=== PATIENT | male | born 2005 | race Caucasian/White ===

== ENCOUNTER 2024-08-22 11:27 | Outpatient (CLI) | payer BC, SELFPAY ==
[2024-08-22 13:28] LABS: Hemoglobin 15.1 g/dL (14.0-18.0); Mean Corpuscular HGB Conc 32.8 g/dl (32-36); Mean Corpuscular Hemoglobin 29.9 pg (26-34); Mean Corpuscular Volume 91.1 fl (80-100); Mean Platelet Volume 10.4 fl (7.4-10.4); Platelet Count Result 193 k/mm3 (150-375); Red Blood Count 5.05 M/mm3 (4.6-6.20); Red Cell Distribution Width 13.3 % (11.5-14.5); White Blood Count 3.8 K/mm3 (4.5-10.0)
[2024-08-22 13:28] LABS: Ammonia < 9 umol/L (9-30)
[2024-08-22 13:38] LABS: Alanine Aminotransferase 27 U/L (6-50); Albumin Level 4.9 g/dL (3.7-5.6); Alkaline Phosphatase 124 U/L (58-237); Anion Gap 13 mmol/L (4-12); Aspartate Amino Transferase 49 U/L (17-59); Bilirubin,Total 0.4 mg/dL (0.2-1.3); Blood Urea Nitrogen 8 mg/dL (8-21); Calcium 9.5 mg/dL (8.9-10.7); Carbon Dioxide 27 mmol/L (22-30); Chloride 94 mmol/L (98-107); Estimated Glomerular Filt Rate > 60; Glucose 62 mg/dL (65-110); Potassium 4.7 mmol/L (3.4-5.0); Sodium 134 mmol/L (134-143)
[2024-08-22 14:05] LABS: Valproic Acid 80.9 ug/mL (50-120)
[2024-08-24 21:48] LABS: Oxcarbazepine 19.5 mcg/mL (8.0-35.0)
== END 2024-08-22 11:28 | disposition home or self-care (01) ==
LOC: ANHGOSHLAB 11:34
DX: G40.019 Localization-related (focal) (partial) idiopathic epilepsy and epileptic syndromes with seizures of localized onset, intractable, without status epilepticus (principal); Z79.899 Other long term (current) drug therapy
CPT/HCPCS: 36415; 80053; 80164; 80183; 82140; 85027

== ENCOUNTER 2025-02-06 12:30 | Outpatient (CLI) | payer BC, SELFPAY ==
[2025-02-06 13:54] LABS: Ammonia 21 umol/L (9-30)
--- OUTSIDE RECORDS SUMMARY | 2025-02-06 14:52 | XMS_ITS | Clinical Summary ---
Author Organization [facility] Address [address] [place] [address] Care Team Providers Care Hook Up Driver Name Role Phone Avis Clark MD Unavailable [phone] Source Comments [facility],non-owned Affiliates and Associated Physician Practices is amultiple site organization consisting of ambulatory clinics and hospital sitesin [place], [place], [place] and [place]. This disclosure is being madepursuant to the Care Everywhere program and may not contain all information available regarding this patient. Last updated 18.[employer] [facility] Allergies Active Allergy Reactions Criticality Noted Date Comments Penicillins Unknown 10/02/2021 Family has reactions mom avoids Medications * Be aware that medications may not be up to date on this document. Alwaysverify current medications with the patient. Medication Sig Dispensed Refills Start Date End Date Status polyethylene glycol 3350 (MIRALAX) packet Take by mouth once daily Active diazePAM (VALTOCO) 10 MG/0.1ML nasal spray [place] 0.1 mL into the nose as needed (seizure > 5 min) 2 Each 07/31/2021 Active multivitamin daily tablet Take 1 (one) tablet by mouth daily with food Active melatonin 3 MG tablet Take 1 (one) tablet by mouth at bedtime Active acetaminophen (TYLENOL) 325 MG tablet Take 1 (one) tablet by mouth every 4 hours as needed for Fever or Pain Maximum allowable Acetaminophen amount = 4 Grams (4000 mg) / 24 hours. Active OXcarbazepine (Trileptal) 300 MG/5ML suspensionIndica tions:Localizati on-related focal epilepsy with simple partial seizures (HCC) Take 15 mL by mouth 2 times daily 900 mL 5 08/22/2024 02/18/2025 Active valproic acid (Depakene) 250 MG/5ML solutionIndicati ons:Localization -related focal epilepsy with simple partial seizures (HCC) Take 10 mL by mouth every 12 hours 600 mL 5 08/22/2024 02/18/2025 Active diazePAM (Valtoco) 15 MG (2 x 7.5 MG/0.1ML) nasal sprayIndications :Localization-re lated focal epilepsy with simple partial seizures (HCC) [place] 0.2 mL into the nose as needed for Seizures (for seizure lasting 5 minutes OR cluster of seizures 3 or more in 1 hour) Use first device to spray 0.1 mL into one nostril and the second device to spray 0.1 mL in the other nostril. 2 Each 1 01/23/2025 Active diazePAM (Valtoco) 15 MG (2 x 7.5 MG/0.1ML) nasal sprayIndications :Localization-re lated focal epilepsy with simple partial seizures (HCC) [place] 0.2 mL into the nose as needed for Seizures (for seizure lasting 5 minutes OR cluster of seizures 3 or more in 1 hour) Use first device to spray 0.1 mL into one nostril and the second device to spray 0.1 mL in the other nostril. 1 Each 1 03/21/2024 01/23/2025 Discontinue d(Tx Complete) Active Problems Patient Care Coordination No te Formatting of this note migh t be different from the original. Do you have any cultural preferences or concerns? 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 Seizures improved not eliminated on Trileptal. He has not seen to have complications from medication and good reported compliance. Plan - Increase Trileptal 720 mg BID, 12 mL (29 mg/kg) - Valtoco rescued ordered - MRI brain ordered, with need for sedation family prefers to do closer to home - Social work consult for home school resources - Follow up in 3 months Assessment & Plan (01/16/2020 10:05 PM MINERAL ECONOMIST): Assessment: 14 year old male with history of possible autism presenting with episodes of lip smacking and fidgety motions of hands, now associated with behavioral arrest. Differential includes seizure (more likely focal onset with impared awareness rather than absence given age of patient and presentation) vs physiologic behavioral change. Plan: - Admit to Pediatric Neurology (Dr. Molina) - Vital checks Q8 - Neuro Checks Q4 - Seizure precautions - Diet regular - EEG in AM - Ativan 0.1 mg/kg for seizures > 5 minutes or clusters of seizures without return to baseline Encounters Date Type Department Care Team Description 02/06/2025 10:30 AM CDT Hospital Encounter [facility] Pediatrics - Neurology [address] [place] [address] Gayla Diaz MD 02/06/2025 Travel 01/23/2025 Travel 01/23/2025 Refill [facility] Pediatrics - Neurology [address] [place] [id number] Gayla Diaz MD MEDICATION REFILL from Last 3 Months Immunizations Name Administration Dates Next Due DTAP/HEP B/IPV 02/12/2005,2004 DTAP/IPV 06/25/2010 DTaP VACCINE IM (6wk-6yrs) 01/29/2006,05/09/2005 FLU VACCINE TRI IIV3 SPLIT I M (FLUVIRIN) 08/31/2012 HEP A PED/ADULT VACCINE 05/07/2007,07/22/2006 HEP A PEDS 2 DOSE 05/07/2007,07/22/2006 HEP B VACCINE, PED/ADOL 05/09/2005,2004, HIB VACCINE 01/29/2006, 5,02/12/2005,12/16 Human Papilloma Virus Nineva lent Vaccine 06/22/2018,07/24/2017 INFLUENZA VACCINE 10/16/2008, 7,11/06/2006,10/21 INFLUENZA VACCINE, QUADR. (F LUZONE; FLULAVAL; FLUARIX; AFLURIA QUADRIVALENT; 6MO+), 0.5 ML (IIV4) 01/17/2020,11/11/2017,11/04/2017,08/31,10/04/2014 MENINGOCOCCAL MCV4 07/02/2015 MMR VACCINE 10/16/2008,10/21/2005 PNEUMOCOCCAL PCV7 CONJ, PEDS 01/29/2006, 05/09/2005,02/12/2005,12/16 POLIO IPV 05/09/2005 TDAP, HISTORIC VACCINE 07/02/2015 VARICELLA 10/16/2008,10/21/2005 Social History Tobacco Use Types Packs/Day Years Used Date Smoking Tobacco: Never Passive Smoke Exposure: Yes Smokeless Tobacco: Never Tobacco Cessation:Counseling Given: Not Answered Alcohol Use Standard Drinks/Week Comments Never 0 (1 standard drink = 0.6 oz pur e alcohol) AUDIT-C Answer Date Recorded Frequency of Alcohol Consumption Never 01/16/2020 Average Number of Drinks Not on file 020 Frequency of Binge Drinking Not on file 12/25 Sex and Gender Information Value Date Recorded Sex Assigned at Not on file Gender Identity Not on file Sexual Orientation Not on file Last Filed Vital Signs Vital Sign Reading Time Taken Comments Blood Pressure 124/72 02/06/2025 10:38 AM CDT Pulse 96 10/02/2021 3:40 PM MINERAL ECONOMIST Temperature 36.6 C (97.8 F) 10/02/2021 3:40 PM MINERAL ECONOMIST Respiratory Rate 15 10/02/2021 3:40 PM MINERAL ECONOMIST Oxygen Saturation 97% 10/02/2021 3:40 PM MINERAL ECONOMIST Inhaled Oxygen Concentration - - Weight 53.7 kg (118 lb 6.2 oz) 02/06/2025 10:38 AM CDT Height 170.3 cm (5' 7.05 ) 02/06/2025 10:38 AM C DT Body Mass Index 18.52 02/06/2025 10:38 AM CDT Plan of Treatment Upcoming Encounters Date Type Department Care Team (Late st Contact Info) Description 04/24/2025 11:30 AM CDT Appointment [facility] Pediatrics - Neurology [facility] [facility] [place] [id number] Gayla Diaz MD [address] [place] [address] Health Maintenance Due Date Last Done Comments HIV SCREENING 2019 MENINGOCOCCAL (Group B) VACCINE SHARED DECISION-MAKING (1 of 2 - Standard) 2020 HEPATITIS C SCREENING 10/10/2022 COVID-19 VACCINE ( - season) 2024 DEPRESSION SCREENING 11/23/2024 DTAP/TDAP/TD VACCINES (7 - Td or Tdap) 07/02/2025 07/02/2015, 06/25/2010, 01/29/2006, Additional history exists ZOSTER VACCINE (1 of 2) 2054 HEPATITIS B VACCINE Completed 05/09/2005, 02/12/2005, 2004, Additional history exists HIB VACCINE Completed 01/29/2006, 04/23, 02/12/2005, Additional history exists PNEUMOCOCCAL VACCINE Completed 01/29/2006, 05/09/2005, 02/12/2005, Additional history exists MENINGOCOCCAL GROUPS A/C/Y/W VACCINE Aged Out 07/02/2015 No longer eligible based on patient's age to complete this topic HPV VACCINE Completed 06/22/2018, 07/24/2017 INFLUENZA VACCINE Completed 01/22/2025, , 01/17/2020, Additional history exists Advance Directives * Full Code (Latest Code Status on File) Date Activated Date Inactivated Comments 01/16/2020 9:36 PM 01/17/2020 6:52 PM Care Teams Hook Up Driver Relationship Specialty Start Date End Date Avis Clark MD PCP - Attributed-[employer] Medicaid [place] 08/23/22
--- OUTSIDE RECORDS SUMMARY | 2025-02-06 14:52 | XMS_ITS | Patient Health Summary ---
Author Organization [facility] Address [address] [place] [address] Care Team Providers Care Manager Primary Name Role Phone Avis Clark MD Unavailable [phone] Note from [facility],non-owned Affiliates and Associated Physician Practices is amultiple site organization consisting of ambulatory clinics and hospital sitesin [place], [place], [place] and [place]. This disclosure is being madepursuant to the Care Everywhere program and may not contain all information available regarding this patient. Last updated 18.[facility] Allergies * Penicillins(Unknown) Medications * Be aware that medications may not be up to date on this document. Alwaysverify current medications with the patient. * polyethylene glycol 3350 (MIRALAX) packet Take by mouth once daily * diazePAM (VALTOCO) 10 MG/0.1ML nasal spray(Started 07/31/2021) [place] 0.1 mL into the nose as needed (seizure > 5 min) * multivitamin daily tablet Take 1 (one) tablet by mouth daily with food * melatonin 3 MG tablet Take 1 (one) tablet by mouth at bedtime * acetaminophen (TYLENOL) 325 MG tablet Take 1 (one) tablet by mouth every 4 hours as needed for Fever or Pain Maximum allowable Acetaminophen amount = 4 Grams (4000 mg) / 24 hours. * OXcarbazepine (Trileptal) 300 MG/5ML suspension(Started 08/22/2024) Take 15 mL by mouth 2 times daily 5 refills by 08/22/2025 * valproic acid (Depakene) 250 MG/5ML solution(Started 08/22/2024) Take 10 mL by mouth every 12 hours 5 refills by 08/22/2025 * diazePAM (Valtoco) 15 MG (2 x 7.5 MG/0.1ML) nasal spray(Started 01/23/2025) [place] 0.2 mL into the nose as needed for Seizures (for seizure lasting 5 minutes OR cluster of seizures 3 or more in 1 hour) Use first device to spray 0.1 mL into one nostril and the second device tospray 0.1 mL in the other nostril. 1 refill by 07/22/2025 Ended Medications* diazePAM (Valtoco) 15 MG (2 x 7.5 MG/0.1ML) nasal spray (Started 03/21/2024)(Discontinued) [place] 0.2 mL into the nose as needed for Seizures (for seizure lasting 5 minutes OR cluster of seizures 3 or more in 1 hour) Use first device to spray 0.1 mL into one nostril and the second device tospray 0.1 mL in the other nostril. 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, intractable, without status epilepticus 01/16/2020 Immunizations * DTAP/HEP B/IPV(Given 02/12/2005, 2004) * DTAP/IPV(Given 06/25/2010) * DTaP VACCINE IM (6wk-6yrs)(Given 01/29/2006, 05/09/2005) * FLU VACCINE TRI IIV3 SPLIT IM (FLUVIRIN)(Given 08/31/2012) * HEP A PED/ADULT VACCINE(Given 05/07/2007, 07/22/2006) * HEP A PEDS 2 DOSE(Given 05/07/2007, 07/22/2006) * HEP B VACCINE, PED/ADOL(Given 05/09/2005, 2004, 2004) * HIB VACCINE(Given 01/29/2006, 05/09/2005, 02/12/2005, 2004) * Human Papilloma Virus Ninevalent Vaccine(Given 06/22/2018, 07/24/2017) * INFLUENZA VACCINE(Given 10/16/2008, 10/18/2007, 11/06/2006, 10/21/2005) * INFLUENZA VACCINE, QUADR. (FLUZONE; FLULAVAL; FLUARIX; AFLURIA QUADRIVALENT; 6MO+), 0.5 ML (IIV4)(Given 01/17/2020, 11/11/2017, 11/04/2017, 08/31/2015, 10/04/2014) * MENINGOCOCCAL MCV4(Given 07/02/2015) * MMR VACCINE(Given 10/16/2008, 10/21/2005) * PNEUMOCOCCAL PCV7 CONJ, PEDS(Given 01/29/2006, 05/09/2005, 02/12/2005, 2004) * POLIO IPV(Given 05/09/2005) * TDAP, HISTORIC VACCINE(Given 07/02/2015) * VARICELLA(Given 10/16/2008, 10/21/2005) Social History Tobacco Use Types Packs/Day Years [...] AM CDT Pulse 96 10/02/2021 3:40 PM CLEANERS Temperature 36.6 C (97.8 F) 10/02/2021 3:40 PM CLEANERS Respiratory Rate 15 10/02/2021 3:40 PM CLEANERS Oxygen Saturation 97% 10/02/2021 3:40 PM CLEANERS Inhaled Oxygen Concentration - - Weight 53.7 kg (118 lb 6.2 oz) 02/06/2025 10:38 AM CDT Height 170.3 cm (5' 7.05 ) 02/06/2025 10:38 AM C DT Body Mass Index 18.52 02/06/2025 10:38 AM CDT Procedures * MRI BRAIN WO CONTRAST(Performed 10/02/2021) Performed for Seizure (HCC) * EEG AWAKE AND ASLEEP(Performed 01/17/2020) Results * MRI BRAIN WO CONTRAST (10/02/2021 2:05 PM CLEANERS) Anatomical Region Laterality Modality Head Magnetic Resonan ce 10/02/2021 1:35 PM CLEANERS Impressions 10/02/2021 3:02 PM CLEANERS Multiple punctate foci of T2/FLAIR hyperintensity within the bifrontal subcortical and bilateral periatrial white matter. These are nonspecific, possibly representing gliosis or related to perivascular spaces. Otherwise normal MRI of the brain. Reading Radiologist: Maritza Flores on 10/02/2021 at 3:02 PM Narrative 10/02/2021 3:02 PM CLEANERS INDICATION: Seizure COMPARISON: None available. TECHNIQUE: Multiplanar, multisequence MR images of the brain without IV contrast per departmental protocol. FINDINGS: There is no intracranial mass, mass effect or hemorrhage. The ventricles are normal in size and configuration. Persistent cavum septum pellucidum. There is no abnormal extra-axial fluid. The mondragon-white matter differentiation is normal. The myelination pattern is normal. There are multiple punctate foci of T2/FLAIR hyperintensity within the bifrontal subcortical and periatrial white matter, the largest is in the right frontal region measuring 3 mm. No associated reduced diffusion or susceptibility related signal loss. The corpus callosum is fully formed and normal in appearance. The pituitary gland is convex superiorly, normal for age. There is a normal posterior pituitary bright spot. The pineal gland is normal. The posterior fossa is normal, including no Chiari malformation. There are normal high velocity flow voids within the vascular structures of the [place]. No reduced diffusion. The hippocampi are symmetric, normal in size and signal. There is no mondragon matter heterotopia or other migration anomaly. No evidence of vascular malformation. The orbits are normal. There is mild mucosal thickening/fluid signal in the paranasal sinuses. No mastoid effusion. Procedure Note Maritza Flores MD - 10/02/2021 INDICATION: Seizure COMPARISON: None available. TECHNIQUE: Multiplanar, multisequence MR images of the brain without IVcontrast per departmental protocol. FINDINGS: There is no intracranial mass, mass effect or hemorrhage. The ventricles are normal in size and configuration. Persistent cavumseptum pellucidum. There is no abnormal extra-axial fluid. The mondragon-white matter differentiation is normal. The myelination patternis normal. There are multiple punctate foci of T2/FLAIR hyperintensity withinthe bifrontal subcortical and periatrial white matter, the largest is in theright frontal region measuring 3 mm. No associated reduced diffusion orsusceptibility related signal loss. The corpus callosum is fully formed and normal in appearance. Thepituitary gland is convex superiorly, normal for age. There is a normal posterior pituitary bright spot. The pineal gland is normal. The posterior fossa is normal, including noChiari malformation. There are normal high velocity flow voids within the vascular structuresof the [place] of [place]. No reduced diffusion. The hippocampi are symmetric, normal in size and signal. There is no graymatter heterotopia or other migration anomaly. No evidence of vascularmalformation. The orbits are normal. There is mild mucosal thickening/fluid signal inthe paranasal sinuses. No mastoid effusion. IMPRESSION Multiple punctate foci of T2/FLAIR hyperintensity within the bifrontal subcortical and bilateral periatrial white matter. These are nonspecific, possibly representing gliosis or related to perivascular spaces. Otherwise normal MRI of the brain. Reading Radiologist: Maritza Flores on 10/02/2021 at 3:02 PM Zachary Kaba MD MR ORDERABLES Care Teams Manager Primary Relationship Specialty Start Date End Date Avis Clark MD PCP - Attributed-[employer] Medicaid [place] 08/23/22
--- OUTSIDE RECORDS SUMMARY | 2025-02-06 14:52 | XMS_ITS | Referral Summary ---
Author Organization [facility] Address [address] [place] [address] Care Team Providers Care Layer Up Name Role Phone Unknown, Notinfile Primary Care Provider Unavail able Encounters Date Type Department Care Team Description 01/20/2025 8:33 AM [employer] INSTALLER - 01/22/2025 2:23 PM [employer] INSTALLER Hospital Encounter [place] [address] Med [address]urg [address] [place] [address] Gerhard Hayes MD Altwal, MD Cooper Joy, Marycruz Murphy MD Seizure (HCC) (Primary Dx); Hyponatremia Discharge Disposition: Discharge to home or self care from Last 3 Months Allergies No known active allergies Medications OXcarbazepine (TRILEPTAL) suspension 300 mg/5 mL Take 15 mL (900 mg total) by mouth 2 (two) times a day 0 02/19/20 25 Active valproate 50 mg/mL syrup Take 10 mL (500 mg total) by mouth every 12 (twelve) hours 4 02/19/20 25 Active polyethylene glycol (MIRALAX) 17 gram/dose bulk powder Take 17 g by mouth daily as needed (constipation) Active acetaminophen (TYLENOL) oral liquid 160 mg/5 mL Take 20 mL (640 mg total) by mouth every 6 (six) hours as needed for pain, fever or headaches Active Active Problems Problem Noted Date Diagnosed Date Hyponatremia 01/21/2025 Seizure 01/20/2025 Positive CAGE assessment for alcohol abuse 03/30 Hypotonic disorder 03/30/2013 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 Immunizations Immunization Administration Dates Next Due DTaP 01/29/2006,05/09/2005 DTaP / Hep B / IPV 02/12/2005,2004 DTaP / IPV 06/25/2010 HPV9 06/22/2018,07/24/2017 Hep A, Ped Unspecified 05/07/2007,07/22/2006 Hep B, Adolescent or Pediatric 05/09/2005,2004,2004 HiB 01/29/2006, 5,02/12/2005,12/16 IPV 05/09/2005 Influenza, Quadrivalent, Spl it, Preservative Free, Intramuscular 09/09/2023,01/17/2020,11/11/2017,11/04,08/31/2015,10/04/2014 Influenza, Split 10/16/2008,11/06/2006, 5 Influenza, Trivalent, IM (MDV) 08/31/2012 Influenza, Trivalent, Preser vative Free, Intramuscular 01/22/2025 Influenza, Unspecified 10/18/2007 MMR 10/16/2008,10/21/2005 Meningococcal B, OMV (Bexsero) 09/09/2023 Meningococcal Conjugate (Menveo) 09/09/2023,06/23 Pneumococcal Conjugate 7-Valent 01/30/20 06,05/09/2005,02/12/2005,12/16 Tdap 07/02/2015 Varicella 10/16/2008,10/21/2005 Social History Tobacco Use Types Packs/Day Years Used Date Smoking Tobacco: Never Smokeless Tobacco: Never AUDIT-C Answer Date Recorded Q1: How often do you have a drink containing alc ohol? Never 01/20/2025 Average Number of Drinks Not on file 025 Q3: How often do you have si x or more drinks on one occasion? Never 01/20/2025 Personal Safety Answer Date Recorded Have you ever been in or are you currently in a harmful physical or emotional relationship or is someone making you feel afraid or unsafe? Denies 01/20/2025 Sex and Gender Information Value Date Recorded Sex Assigned at Not on file Legal Sex Male 1:08 AM [employer] INSTALLER Gender Identity Not on file Sexual Orientation Not on file Last Filed Vital Signs Vital Sign Reading Time Taken Comments Blood Pressure 119/70 01/22/2025 7:38 AM [employer] INSTALLER Pulse 72 01/22/2025 7:38 AM [employer] INSTALLER Temperature 36.3 C (97.3 F) 01/22/2025 7:38 AM [employer] INSTALLER Respiratory Rate 18 01/22/2025 7:38 AM [employer]ER INSTALLER Oxygen Saturation 100% 01/22/2025 7:38 AM [employer] INSTALLER Inhaled Oxygen Concentration - - Weight 57.4 kg (126 lb 9.6 oz) 01/20/2025 2:46 P M [employer] INSTALLER Height 170.2 cm (5' 7 ) 01/20/2025 2:46 PM [employer] INSTALLER Body Mass Index 19.83 01/20/2025 2:46 PM [employer] INSTALLER Plan of Treatment Not on file Procedures Procedure Name Priority Date/Time Associated Diagnosis Comments EGFR Routine 01/22/2025 5:53 AM [employer] INSTALLER DIFFERENTIAL AUTO Routine 01/22/2025 5:5 3 AM [employer] INSTALLER CORTISOL Timed 01/22/2025 5:53 AM [employer] INSTALLER PHOSPHORUS Routine 01/22/2025 5:53 AM [employer] INSTALLER MAGNESIUM Routine 01/22/2025 5:53 AM [employer] INSTALLER BASIC METABOLIC PANEL Routine 01/22/2025 5:53 AM [employer] INSTALLER CBC WITH AUTO DIFFERENTIAL Routine 01/22/2025 5:53 AM [employer] INSTALLER SODIUM LEVEL Timed 01/21/2025 9:11 AM [employer] INSTALLER EGFR Routine 01/21/2025 5:42 AM [employer] INSTALLER DIFFERENTIAL AUTO Routine 01/21/2025 5:4 2 AM [employer] INSTALLER SODIUM LEVEL Timed 01/21/2025 5:42 AM [employer] INSTALLER PHOSPHORUS Routine 01/21/2025 5:42 AM [employer] INSTALLER MAGNESIUM Routine 01/21/2025 5:42 AM [employer] INSTALLER BASIC METABOLIC PANEL Routine 01/21/2025 5:42 AM [employer]ER INSTALLER CBC WITH AUTO DIFFERENTIAL Routine 01/21/2025 5:42 AM [employer] INSTALLER SODIUM LEVEL Timed 01/20/2025 7:49 PM [employer] INSTALLER SODIUM LEVEL STAT 01/20/2025 5:33 PM [employer] INSTALLER EGFR STAT 01/20/2025 12:58 PM [employer] INSTALLER BASIC METABOLIC PANEL STAT 01/20/2025 12:58 PM [employer]ER INSTALLER OSMOLALITY, BLOOD STAT 01/20/2025 12: 58 PM [employer]ER INSTALLER CREATININE, URINE, RANDOM Routine 01/20/2025 11:13 AM [employer]ER INSTALLER SODIUM, URINE, RANDOM Routine 01/20/2025 11:13 AM [employer]ER INSTALLER OSMOLALITY, URINE STAT 01/20/2025 11: 12 AM [employer]ER INSTALLER URINALYSIS AND REFLEX TO MICROSCOPIC AND CULTURE STAT 01/20/2025 11:12 AM [employer]WN [employer]INKLER INSTALLER XR CHEST 1 VIEW ED 01/20/2025 9:11 AM [employer]INKLER INSTALLER THYROID FUNCTION CASCADE Add-On 01/20/2025 8:53 AM [employer]ER INSTALLER EGFR STAT 01/20/2025 8:53 AM [employer]ER INSTALLER DIFFERENTIAL AUTO STAT 01/20/2025 8:5 3 AM [employer]INK[employer]ER INSTALLER VALPROIC ACID LEVEL, TOTAL STAT 01/20/2025 8:53 AM [employer]INKLER INSTALLER COMPREHENSIVE METABOLIC PANEL STAT 01/20/2025 8:53 AM [employer]INKLER INSTALLER CBC WITH AUTO DIFFERENTIAL STAT 01/20/2025 8:53 AM [employer]LER INSTALLER INFLUENZA A/B, RSV, AND COVID-19 PCR STAT 01/20/2025 8:53 AM [employer]ER INSTALLER POCT GLUCOSE DEVICE Routine 01/20/2025 8 :38 AM [employer]ER INSTALLER from Last 3 Months Results * eGFR (01/22/2025 5:53 AM LAWN [employer]INK[employer]ER INSTALLER) eGFR >90 >=60 mL/min/1. 73 m2 Comment: Interpretive Data Reference Interval Normal >/= 90 mL/min/1.73m2 Mildly decreased* 60 - 89 mL/min/1.73m2 Mildly to moderately decreased 45 - 59 mL/min/1.73m2 Moderately to severely decreased 30 - 44 mL/min/1.73m2 Severely decreased 15 - 29 mL/min/1.73m2 Kidney Failure < 15 mL/min/1.73m2 *Relative to young adult level Estimated glomerular filtration rate is determined by the 2020 CKD-EPI equation recommended by the National Kidney Foundation (A Unifying Approach to GFR Estimation: Recommendations of the NKF-ASK Task Force on Reassessing the Inclusion of Race in Diagnosing Kidney Disease, JASN 2020). The CKD-EPI equation should not be used for patients with unstable renal function and has not been validated in children and those over 70. Current interpretive data was last reviewed 2021. Testing performed by: [address] [address] Blood 01/22/2025 5:53 AM [employer]LER INSTALLER 01/22/2025 6:03 AM [employer]ER INSTALLER us Susan Yu NP LAB BLOOD ORDERABLES Cely l Result [facility] [address] [facility] Department [place] [address] * Differential, auto (01/22/2025 5:53 AM LA[employer]INKLER INSTALLER) Neutrophil abs 4.6 1.5 - 6.5 K/cumm Comment:Testing performed by : [address] [address] Imm gran abs 0.1 0.0 - 0.1 K/cumm CERNER Comment:Testing performed by : [address] [address] Lymphocyte abs 1.6 0.8 - 3.3 K/cumm CERNER Comment:Testing performed by : [address] [address] Monocyte abs 0.6 0.2 - 0.8 K/cumm [facility] Comment:Testing performed by : [address], [place]., [address] Eosinophil abs 0.1 0.0 - 0.5 K/cumm CERNER Comment:Testing performed by : [address] [address] Basophil abs 0.0 0.0 - 0.1 K/cumm [facility] Comment:Testing performed by : [address] [address] Neutrophil pct 65.8 % [facility] Comment: Interpretive Data Percent cell count reference ranges are not reported, since discordance with absolute values may lead to misinterpretation of CBC data. Current Interpretive Data was last revised on 2018. Testing performed by: [address] [address] Imm gran pct 0.9 % CERNER Comment: Interpretive Data Percent cell count reference ranges are not reported, since discordance with absolute values may lead to misinterpretation of CBC data. Current Interpretive Data was last revised on 2018. Testing performed by: [address] [address] Lymphocyte pct 22.8 % CERNER Comment: Interpretive Data Percent cell count reference ranges are not reported, since discordance with absolute values may lead to misinterpretation of CBC data. Current Interpretive Data was last revised on 2018. Testing performed by: [address] [address] Monocyte pct 8.7 % CERNER Comment: Interpretive Data Percent cell count reference ranges are not reported, since discordance with absolute values may lead to misinterpretation of CBC data. Current Interpretive Data was last revised on 2018. Testing performed by: [address] [address] Eosinophil pct 1.4 % BILLIE Comment: Interpretive Data Percent cell count reference ranges are not reported, since discordance with absolute values may lead to misinterpretation of CBC data. Current Interpretive Data was last revised on 2018. Testing performed by: [address] [address] Basophil pct 0.4 % BILLIE Comment: Interpretive Data Percent cell count reference ranges are not reported, since discordance with absolute values may lead to misinterpretation of CBC data. Current Interpretive Data was last revised on 2018. Testing performed by: [address] [address] Blood 01/22/2025 5:53 AM LA[employer]LER INSTALLER 01/22/2025 6:03 AM LAWN [employer]INKLER INSTALLER Susan Yu SCREEN PRINTING [employer] SPREADER LAB BLOOD ORDERABLES Cely l Result [place] [id number] [facility] Department [place] [address] * (ABNORMAL) CBC with auto differential (01/22/2025 5:53 AM LA[employer]INKLER INSTALLER) WBC 6.9 3.8 - 9.9 K/cumm Comment:Testing performed by : [address] [address] Hgb 14.3 13.0 - 17.5 g/dL BILLIE Comment:Testing performed by : [address] [address] Hct 41.8 38.9 - 50.3 % BILLIE Comment:Testing performed by : [address] [address] Plt 216 150 - 400 K/cumm [facility]ILLIE YOU Comment:Testing performed by : [address] [address] MPV 9.0(L) 9.1 - 12.3 fL [facility] YOU Comment:Testing performed by : [address] [address] RBC 4.85 4.30 - 5.80 M/cumm [facility]ILLIE YOU Comment:Testing performed by : [address] [address] MCV 86.2 81.3 - 96.4 fL [facility]IE Comment:Testing performed by : [address] [address] MCH 29.5 27.1 - 33.3 pg [facility]IE Comment:Testing performed by : [address], [address] MCHC 34.2 32.3 - 35.7 g/dL [facility]ILLIE Comment:Testing performed by : [address] [address] RDW CV 12.7 11.1 - 14.9 % [facility]ILLIE Comment:Testing performed by : [address], [address] RDW SD 39.8 35.7 - 48.1 fL [facility] Comment:Testing performed by : [address], [address] NRBC abs 0.00 0.00 - 0.01 K/cumm [facility] Comment:Testing performed by : [address], [address] Blood 01/22/2025 5:53 AM [employer]ER INSTALLER 01/22/2025 6:03 AM [employer]ER INSTALLER Susan Yu SCREEN [employer] SP[employer]ER LAB BLOOD ORDERABLES Cely l Result [facility] [address] [facility] Department [place] [address] * Phosphorus (01/22/2025 5:53 AM LAWN [employer]INKLER INSTALLER) [facility] Signature Phosphorus, pl 3.8 2.3 - 4.5 mg/dL Comment:Testing performed by : [address], [address] Blood 01/22/2025 5:53 AM [employer]ER INSTALLER 01/22/2025 6:03 AM [employer]ER INSTALLER Susan Yu SCREEN [employer] SP[employer]ER LAB BLOOD ORDERABLES Cely l Result Performing Organization Address [facility] de Phone Number [address] [address] * Magnesium (01/22/2025 5:53 AM LA[employer]LER INSTALLER) [facility] Magnesium 2.1 1.4 - 2.5 mg/dL Comment:Testing performed by : [address] [address] Blood 01/22/2025 5:53 AM [employer]ER INSTALLER 01/22/2025 6:03 AM [employer]ER INSTALLER Susan Yu NP LAB BLOOD ORDERABLES Cely l Result Performing Organization Address [facility] de Phone Number [address] [address] * Cortisol (01/22/2025 5:53 AM LA[employer]LER INSTALLER) [facility] Cortisol 10.7 4.8 - 19.5 mcg/dl Blood 01/22/2025 5:53 AM [employer] INSTALLER 01/22/2025 8:28 AM [employer]ER INSTALLER Marycruz Gamboa MD LAB BLOOD ORDERABLES F inal Result Performing Organization Address [facility] de Phone Number [address] [address] * (ABNORMAL) Basic metabolic panel (01/22/2025 5:53 AM [employer]INKLER INSTALLER) [facility] Sodium 131(L) 135 - 145 mmol/L Comment:Testing performed by : [address] [address] Potassium, pl 4.7 3.3 - 4.9 mmol/L [facility] Comment:Testing performed by : [address] [address] Chloride 95(L) 97 - 110 mmol/L BILLIE Comment:Testing performed by : [address] [address] CO2 26 22 - 32 mmol/L [facility]IE Comment:Testing performed by : [address] [address] Anion gap 10 2 - 15 mmol/L [facility]IE Comment:Testing performed by : [address] [address] BUN 10 6 - 25 mg/dL [facility] Comment:Testing performed by : [address] [address] Creatinine 0.60(L) 0.80 - 1.30 mg/dL [facility] Comment:Testing performed by : [address] [address] Glucose 94 70 - 199 mg/dL [facility] Comment: Interpretive Data Fasting glucose >/= 126 mg/dl is diagnostic for diabetes. Fasting is defined as no caloric intake for at least 8 hours. Fasting glucose between 100 mg/dl to 125 mg/dl is diagnostic of prediabetes. In a patient with classic symptoms of hyperglycemia or hyperglycemic crisis, a random glucose >/= 200 mg/dl is diagnostic for diabetes. In the absence of unequivocal hyperglycemia, results should be confirmed by repeat testing. The classification and Diagnosis of Diabetes Diabetes Care 202; 46: S19-S40. Current interpretive data was last revised 2022. Testing performed by: [address] [address] Calcium 9.9 8.5 - 10.3 mg/dL [facility]IE Comment:Testing performed by : [address] [address] Blood 01/22/2025 5:53 AM [employer]ER INSTALLER 01/22/2025 6:03 AM [employer] INSTALLER us Susan Yu NP LAB BLOOD ORDERABLES Cely l Result [facility] [address] [facility] Department [place] [address] * (ABNORMAL) Sodium level (01/21/2025 9:11 AM [employer]ER INSTALLER) Sodium 126(L) 135 - 145 mmol/L Comment:Testing performed by : [facility], [address] [place] [address]., [address] Blood 01/21/2025 9:11 AM [employer]ER INSTALLER 01/21/2025 9:16 AM [employer]ER INSTALLER Susan Yu SCRE[employer] SP[employer]ER LAB BLOOD ORDERABLES Cely l Result Performing Organization Address [facility] Co de Phone Number [facility] [address] [place] [address] * eGFR (01/21/2025 5:42 AM [employer]ER INSTALLER) eGFR >90 >=60 mL/min/1. 73 m2 Comment: Interpretive Data Reference Interval Normal >/= 90 mL/min/1.73m2 Mildly decreased* 60 - 89 mL/min/1.73m2 Mildly to moderately decreased 45 - 59 mL/min/1.73m2 Moderately to severely decreased 30 - 44 mL/min/1.73m2 Severely decreased 15 - 29 mL/min/1.73m2 Kidney Failure < 15 mL/min/1.73m2 *Relative to young adult level Estimated glomerular filtration rate is determined by the 2020 CKD-EPI equation recommended by the National Kidney Foundation (A Unifying Approach to GFR Estimation: Recommendations of the NKF-ASK Task Force on Reassessing the Inclusion of Race in Diagnosing Kidney Disease, JASN 2020). The CKD-EPI equation should not be used for patients with unstable renal function and has not been validated in children and those over 70. Current interpretive data was last reviewed 2021. Testing performed by: [facility], [address] [place] [address]., [address] Blood 01/21/2025 5:42 AM LA[employer]ER INSTALLER 01/21/2025 5:57 AM [employer] INSTALLER Susan Yu NP LAB BLOOD ORDERABLES Cely l Result Performing Organization Address City/[facility]/ZIP Co de Phone Number [facility] [address] [facility] Department [place] [address] * (ABNORMAL) Differential, auto (01/21/2025 5:42 AM LA[employer]INKLER INSTALLER) Neutrophil abs 8.1(H) 1.5 - 6.5 K/cumm Comment:Testing performed by : [address] [address] Imm gran abs 0.1 0.0 - 0.1 K/cumm BILLIE Comment:Testing performed by : [address] [address] Lymphocyte abs 2.2 0.8 - 3.3 K/cumm [facility] Comment:Testing performed by : [address] [address] Monocyte abs 0.6 0.2 - 0.8 K/cumm [facility] Comment:Testing performed by : [address] [address] Eosinophil abs 0.1 0.0 - 0.5 K/cumm [facility] Comment:Testing performed by : [address] [address] Basophil abs 0.0 0.0 - 0.1 K/cumm [facility] Comment:Testing performed by : [address] [address] Neutrophil pct 73.6 % [facility] Comment: Interpretive Data Percent cell count reference ranges are not reported, since discordance with absolute values may lead to misinterpretation of CBC data. Current Interpretive Data was last revised on 2018. Testing performed by: [address] [address] Imm gran pct 0.7 % BILLIE Comment: Interpretive Data Percent cell count reference ranges are not reported, since discordance with absolute values may lead to misinterpretation of CBC data. Current Interpretive Data was last revised on 2018. Testing performed by: [address] [address] Lymphocyte pct 19.5 % BILLIE Comment: Interpretive Data Percent cell count reference ranges are not reported, since discordance with absolute values may lead to misinterpretation of CBC data. Current Interpretive Data was last revised on 2018. Testing performed by: [address] [address] Monocyte pct 5.2 % [facility]IE Comment: Interpretive Data Percent cell count reference ranges are not reported, since discordance with absolute values may lead to misinterpretation of CBC data. Current Interpretive Data was last revised on 2018. Testing performed by: [address] [address] Eosinophil pct 0.6 % [facility]IE Comment: Interpretive Data Percent cell count reference ranges are not reported, since discordance with absolute values may lead to misinterpretation of CBC data. Current Interpretive Data was last revised on 2018. Testing performed by: [address] [address] Basophil pct 0.4 % BILLIE Comment: Interpretive Data Percent cell count reference ranges are not reported, since discordance with absolute values may lead to misinterpretation of CBC data. Current Interpretive Data was last revised on 2018. Testing performed by: [address] [address] Blood 01/21/2025 5:42 AM [employer]LER INSTALLER 01/21/2025 5:57 AM [employer] INSTALLER Susan Yu SCRE[employer]ER LAB BLOOD ORDERABLES Cely l Result [facility] [address] [facility] Department of Laboratories [place], [place] [id number] * (ABNORMAL) CBC with auto differential (01/21/2025 5:42 AM LAWN [employer]INKLER INSTALLER) WBC 11.1(H) 3.8 - 9.9 K/cumm Comment:Testing performed by : [address] [address] Hgb 13.4 13.0 - 17.5 g/dL BILLIE Comment:Testing performed by : [address] [address] Hct 38.0(L) 38.9 - 50.3 % [facility]IE Comment:Testing performed by : [address] [address] Plt 220 150 - 400 K/cumm [facility] Comment:Testing performed by : [address] [address] MPV 9.5 9.1 - 12.3 fL [facility] Comment:Testing performed by : [address] [address] RBC 4.51 4.30 - 5.80 M/cumm [facility]IE Comment:Testing performed by : [address], [address] MCV 84.3 81.3 - 96.4 fL [facility]IE Comment:Testing performed by : [address] [address] MCH 29.7 27.1 - 33.3 pg [facility]IE Comment:Testing performed by : [address], [address] MCHC 35.3 32.3 - 35.7 g/dL [facility]IE Comment:Testing performed by : [address], [address] RDW CV 12.6 11.1 - 14.9 % [facility] Comment:Testing performed by : [address] [address] RDW SD 38.3 35.7 - 48.1 fL [facility] Comment:Testing performed by : [address], [address] NRBC abs 0.00 0.00 - 0.01 K/cumm [facility] Comment:Testing performed by : [address] [address] Blood 01/21/2025 5:42 AM [employer] INSTALLER 01/21/2025 5:57 AM [employer] INSTALLER us Susan Yu SCRE[employer] LAB BLOOD ORDERABLES Ceyl l Result [facility] [address] Department [place] [address] * (ABNORMAL) Sodium level (01/21/2025 5:42 AM LAWN [employer]INKLER INSTALLER) Pathologist [facility] Sodium 124(L) 135 - 145 mmol/L Comment:Testing performed by : [address] [address] Blood 01/21/2025 5:42 AM LAWN [employer]ER INSTALLER 01/21/2025 5:57 AM [employer] INSTALLER Susan Yu SCREEN [employer]ER LAB BLOOD ORDERABLES Cely l Result [place] [address] [address] * Phosphorus (01/21/2025 5:42 AM LAWN SPRINKLER INSTALLER) [facility] Phosphorus, pl 3.2 2.3 - 4.5 mg/dL Comment:Testing performed by : [address] [address] Blood 01/21/2025 5:42 AM LA[employer]LER INSTALLER 01/21/2025 5:57 AM [employer] INSTALLER Susan Yu SCREEN [employer] LAB BLOOD ORDERABLES Cely l Result [facility] [place] [address] * Magnesium (01/21/2025 5:42 AM LAWN SPRINKLER INSTALLER) [facility] Magnesium 1.8 1.4 - 2.5 mg/dL Comment:Testing performed by : [address] [address] Blood 01/21/2025 5:42 AM LA[employer]ER INSTALLER 01/21/2025 5:57 AM LAWN [employer]INK[employer]ER INSTALLER us Susan Yu SCREEN [employer]ER LAB BLOOD ORDERABLES Cely l Result [facility] [place] [address] * (ABNORMAL) Basic metabolic panel (01/21/2025 5:42 AM LAWN [employer]INKLER INSTALLER) Sodium 124(L) 135 - 145 mmol/L Comment:Testing performed by : [address] [address] Potassium, pl 4.4 3.3 - 4.9 mmol/L BILLIE Comment:Testing performed by : [address] [address] Chloride 89(L) 97 - 110 mmol/L [facility] Comment:Testing performed by : [address] [address] CO2 24 22 - 32 mmol/L BILLIE Comment:Testing performed by : [address] [address] Anion gap 11 2 - 15 mmol/L [facility] Comment:Testing performed by : [address] [address] BUN 7 6 - 25 mg/dL [facility] Comment:Testing performed by : [address], [place]., [address] Creatinine 0.50(L) 0.80 - 1.30 mg/dL [facility] Comment:Testing performed by : [address] [address] Glucose 95 70 - 199 mg/dL [facility] Comment: Interpretive Data Fasting glucose >/= 126 mg/dl is diagnostic for diabetes. Fasting is defined as no caloric intake for at least 8 hours. Fasting glucose between 100 mg/dl to 125 mg/dl is diagnostic of prediabetes. In a patient with classic symptoms of hyperglycemia or hyperglycemic crisis, a random glucose >/= 200 mg/dl is diagnostic for diabetes. In the absence of unequivocal hyperglycemia, results should be confirmed by repeat testing. The classification and Diagnosis of Diabetes Diabetes Care 202; 46: S19-S40. Current interpretive data was last revised 2022. Testing performed by: [address] [address] Calcium 9.3 8.5 - 10.3 mg/dL BILLIE Comment:Testing performed by : [address] [address] Blood 01/21/2025 5:42 AM LAWN [employer]ER INSTALLER 01/21/2025 5:57 AM [employer]INK[employer] INSTALLER Susan Yu SCREEN [employer]ER LAB BLOOD ORDERABLES Cely l Result [facility] [place] [address] * (ABNORMAL) Sodium level (01/20/2025 7:49 PM LAWN [employer]ER INSTALLER) Sodium 123(L) 135 - 145 mmol/L Comment:Testing performed by : [address] [address] Blood 01/20/2025 7:49 PM LAWN SPRINK[employer]ER INSTALLER 01/20/2025 7:54 PM [employer]WN [employer] INSTALLER Susan Yu LAB BLOOD ORDERABLES Cely l Result Performing Organization Address [facility] Hospital/[facility]/ZIP Co de Phone Number CHASE[address] [address] * (ABNORMAL) Sodium level (01/20/2025 5:33 PM LAWN SPRINKLER INSTALLER) Sodium 122(L) 135 - 145 mmol/L Comment:Testing performed by : [address] [address] Blood 01/20/2025 5:33 PM LAWN SPRINKLER INSTALLER 01/20/2025 5:42 PM LAWN SPRINKLER INSTALLER Susan Yu SCREEN PRINTING CLOTH SPREADER LAB BLOOD ORDERABLES Cely l Result [address] [address] * eGFR (01/20/2025 12:58 PM LAWN SPRINKLER INSTALLER) eGFR >90 >=60 mL/min/1. 73 m2 Comment: Interpretive Data Reference Interval Normal >/= 90 mL/min/1.73m2 Mildly decreased* 60 - 89 mL/min/1.73m2 Mildly to moderately decreased 45 - 59 mL/min/1.73m2 Moderately to severely decreased 30 - 44 mL/min/1.73m2 Severely decreased 15 - 29 mL/min/1.73m2 Kidney Failure < 15 mL/min/1.73m2 *Relative to young adult level Estimated glomerular filtration rate is determined by the 2020 CKD-EPI equation recommended by the National Kidney Foundation (A Unifying Approach to GFR Estimation: Recommendations of the NKF-ASK Task Force on Reassessing the Inclusion of Race in Diagnosing Kidney Disease, JASN 2020). The CKD-EPI equation should not be used for patients with unstable renal function and has not been validated in children and those over 70. Current interpretive data was last reviewed 2021. Testing performed by: [facility], [address] [place] [address]., [address] Blood 01/20/2025 12:5 8 PM LAWN SPRINKLER INSTALLER 01/20/2025 1:01 PM [facility]WN SPRINKLER INSTALL[facility] LAB BLOOD ORDERABLES Final Resu lt Performing Organization Address [facility] Co de Phone Number CHASE[address] [place] [address] * (ABNORMAL) Osmolality, blood (01/20/2025 12:58 PM LAWN SPRINKLER INSTALLER) Osmo 256(L) 275 - 295 mOsm/kg Blood 01/20/2025 12:5 8 PM LAWN SPRINKLER INSTALLER 01/20/2025 2:26 PM LAWN SPRINKLER INSTALLER [facility] LAB BLOOD ORDERABLES Final Resu lt Performing Organization Address City/[facility]/ZIP Co de Phone Number [place] [id number] [facility] [place] [address] * (ABNORMAL) Basic metabolic panel (01/20/2025 12:58 PM LAWN SPRINKLER INSTALLER) Sodium 121(L) 135 - 145 mmol/L Comment:Testing performed by : [address] [address] Potassium, pl 4.9 3.3 - 4.9 mmol/L [facility] Comment:Testing performed by : [address] [address] Chloride 88(L) 97 - 110 mmol/L [facility] Comment:Testing performed by : [address], [place]., [address] CO2 23 22 - 32 mmol/L BILLIE Comment:Testing performed by : [address], [place]., [address] Anion gap 10 2 - 15 mmol/L [facility] Comment:Testing performed by : [address] [address] BUN 7 6 - 25 mg/dL [facility] Comment:Testing performed by : [address], [place]., [address] Creatinine 0.48(L) 0.80 - 1.30 mg/dL [facility] Comment:Testing performed by : [address] [address] Glucose 102 70 - 199 mg/dL [facility] Comment: Interpretive Data Fasting glucose >/= 126 mg/dl is diagnostic for diabetes. Fasting is defined as no caloric intake for at least 8 hours. Fasting glucose between 100 mg/dl to 125 mg/dl is diagnostic of prediabetes. In a patient with classic symptoms of hyperglycemia or hyperglycemic crisis, a random glucose >/= 200 mg/dl is diagnostic for diabetes. In the absence of unequivocal hyperglycemia, results should be confirmed by repeat testing. The classification and Diagnosis of Diabetes Diabetes Care 2021; 46: S19-S40. Current interpretive data was last revised 2022. Testing performed by: [address] [address] Calcium 9.1 8.5 - 10.3 mg/dL BILLIE Comment:Testing performed by : [address] [address] Blood 01/20/2025 12:5 8 PM LAWN SPRINKLER INSTALLER 01/20/2025 1:01 PM LAWN SPRINKLER INSTALLER [facility] LAB BLOOD ORDERABLES Final Resu lt Performing Organization Address [facility] Co de Phone Number BILLIE [address] [facility] [place] [address] * Sodium, urine, random (01/20/2025 11:13 AM LAWN SPRINKLER INSTALLER) Sodium, ur 133 mmol/L Comment: Interpretive Data No reference range established. Current interpretive data was last revised 2019. Urine 01/20/2025 11:1 3 AM LAWN SPRINKLER INSTALLER 01/20/2025 12:32 PM LAWN SPRINKLER INSTALLER [facility] LAB URINE ORDERABLES Final Resu lt Performing Organization Address [facility] de Phone Number BILLIE [address] [place] [address] * Creatinine, urine, random (01/20/2025 11:13 AM LAWN SPRINKLER INSTALLER) Creatinine Ur 64.7 mg/dL Comment: Interpretive Data No reference range established. Current interpretive data was last revised 2019. Testing performed by: [address] [address] Urine 01/20/2025 11:1 3 AM LAWN SPRINKLER INSTALLER 01/20/2025 11:19 AM LAWN SPRINKLER INSTALLER [facility] LAB URINE ORDERABLES Final Resu lt Performing Organization Address [facility] de Phone Number BILLIE [address] [facility] [place] [address] * (ABNORMAL) Urinalysis reflex to microscopic and culture Urine (01/20/2025 11:12 AM LAWN SPRINKLER INSTALLER) Color, ur Yellow Yellow Comment:Testing performed by : [address] [address] Clarity, ur Cloudy(A) Clear BILLIE Comment:Testing performed by : [address] [address] Specific gravity, ur 1.016 1.003 - 1.030 BILLIE Comment:Testing performed by : [facility], [address] [place] [address], [place]., [address] pH, urine 7.5 BILLIE Comment: Interpretive Data U rine pH is affected by diet, medications, systemic acid-base disturbances, and renal tubular function. pH may affect urinary stone formation. For example, urine pH below 6.0 may help reduce the tendency for calcium phosphate stones and pH greater than 6.0 may reduce the tendency for uric acid stone formation. Source: [facility] [place] Current Interpretive Data was last revised on 2017 Testing performed by: [address] [address] Protein, ur ql Negative Negative BILLIE Comment:Testing performed by : [address], [place]., [address] Glucose, ur ql Negative Negative BILLIE Comment:Testing performed by : [address] [address] Ketones, ur Negative Negative BILLIE Comment:Testing performed by : [address] [address] Bilirubin, ur Negative Negative BILLIE Comment:Testing performed by : [address] [address] Blood, ur Negative Negative BILLIE Comment:Testing performed by : [address] [address] Urobilinogen, ur <2.0 <2.0 mg/dL BILLIE Comment:Testing performed by : [address] [address] Nitrite, ur Negative Negative BILLIE Comment:Testing performed by : [address] [address] Leukocyte esterase, ur Negative Negative BILLIE Comment:Testing performed by : [address] [address] UA reflex comment Reflex conditions for microscopic UA and culture not met. BILLIE Comment:Testing performed by : [address], [place]., [address] Urine 01/20/2025 11:1 2 AM LAWN SPRINKLER INSTALLER 01/20/2025 11:19 AM LAWN SPRINKLER INSTALLER Rehab Freddy CEDENO LAB MICROBIOLOGY - GENERAL ORDE RABLES Final Result Performing Organization Address [facility] Co de Phone Number BILLIE [facility] [place] [address] * Osmolality, urine (01/20/2025 11:12 AM LAWN SPRINKLER INSTALLER) Osmo, ur 536 300 - 800 mOsm/kg Urine 01/20/2025 11:1 2 AM LAWN SPRINKLER INSTALLER 01/20/2025 12:30 PM LAWN SPRINKLER INSTALLER Rehab Freddy CEDENO LAB URINE ORDERABLES Final Resu lt Performing Organization Address [facility] de Phone Number BILLIE [facility] [place] [address] * XR Chest 1 Vw Portable (01/20/2025 9:11 AM LAWN SPRINKLER INSTALLER) Anatomical Region Laterality Modality Body, Chest N/A Computed Radiogr aphy 01/20/2025 9:28 AM LAWN SPRINKLER INSTALLER Narrative 01/20/2025 9:28 AM LAWN SPRINKLER INSTALLER EXAM DESCRIPTION: XR CHEST 1 VIEW REASON FOR STUDY: cough Seizure onset today TECHNIQUE: 1 radiographic view(s) of the chest. COMPARISON: 06/01/2018 FINDINGS: LUNGS: No focal opacity, pleural effusion, or pneumothorax. HEART/MEDIASTINUM: Cardiac silhouette normal in size. Mediastinal and hilar contours appear normal. LINES/TUBES: None. BONES: No acute osseous abnormality. IMPRESSION: No acute cardiopulmonary abnormality. THIS IS AN ELECTRONICALLY VERIFIED FINAL REPORT 01/20/2025 9:28 AM - Electronically signed by Tan Milner M.D. MM: MM Report ID: [id number] Reading Location: [id number] Procedure Note Tan Milner MD - 01/20/2025 EXAM DESCRIPTION: XR CHEST 1 VIEW REASON FOR STUDY: cough Seizure onset today TECHNIQUE: 1 radiographic view(s) of the chest. COMPARISON: 06/01/2018 FINDINGS: LUNGS: No focal opacity, pleural effusion, or pneumothorax. HEART/MEDIASTINUM: Cardiac silhouette normal in size. Mediastinal andhilar contours appear normal. LINES/TUBES: None. BONES: No acute osseous abnormality. IMPRESSION: No acute cardiopulmonary abnormality. THIS IS AN ELECTRONICALLY VERIFIED FINAL REPORT 01/20/2025 9:28 AM - Electronically signed by Tan Milner M.D. MM: MM Report ID: [id number] Reading Location: [id number] Rehab Freddy CEDENO IMG XR PROCEDURES Final Result * Influenza A/B, RSV, and COVID-19 PCR Nasopharyngeal (01/20/2025 8:53 AM LAWN SPRINKLER INSTALLER) COVID-19 RNA Negative Negative Comment:Testing performed by : [address] [address] Influenza A RNA Negative Negative [facility] Comment:Testing performed by : [address] [address] Influenza B RNA Negative Negative [facility] Comment:Testing performed by : [address] [address] RSV RNA Negative Negative [facility] Comment: Interpretive data: Testing performed by [facility]. This test is performed using the [employer] Xpert Xpress CoV-2/Flu/RSV plus assay. This is a multiplex, real-time reverse transcriptase PCR assay intended for the qualitative detection of nucleic acid from SARS-CoV-2, influenza A, influenza B, and respiratory syncytial virus. This assay has been cleared by the [place] Food and Drug administration. The performance characteristics have been verified by the [facility]. Results must be considered in the clinical context, and a negative result does not rule out infection. Interpretive Data last revised 2023 Testing performed by: [address] [place] [address] Nasopharyngeal 01/20/2025 8: 53 AM LAWN SPRINKLER INSTALLER 01/20/2025 8:57 AM LAWN SPRINKLER INSTALLER Narrative BILLIE - 01/20/2025 9:54 AM LAWN SPRINKLER INSTALLER Is the Patient experiencing symptoms consistent with COVID?->Unknown Rehab Freddy CEDENO LAB MICROBIOLOGY - GENERAL ORDE RABLES Final Result Performing Organization Address City/[facility] Co de Phone Number BILLIE [address] [facility] [address] [place] [address] * eGFR (01/20/2025 8:53 AM LAWN SPRINKLER INSTALLER) eGFR >90 >=60 mL/min/1. 73 m2 Comment: Interpretive Data Reference Interval Normal >/= 90 mL/min/1.73m2 Mildly decreased* 60 - 89 mL/min/1.73m2 Mildly to moderately decreased 45 - 59 mL/min/1.73m2 Moderately to severely decreased 30 - 44 mL/min/1.73m2 Severely decreased 15 - 29 mL/min/1.73m2 Kidney Failure < 15 mL/min/1.73m2 *Relative to young adult level Estimated glomerular filtration rate is determined by the 2020 CKD-EPI equation recommended by the National Kidney Foundation (A Unifying Approach to GFR Estimation: Recommendations of the NKF-ASK Task Force on Reassessing the Inclusion of Race in Diagnosing Kidney Disease, JASN 2020). The CKD-EPI equation should not be used for patients with unstable renal function and has not been validated in children and those over 70. Current interpretive data was last reviewed 2021. Testing performed by: [facility], [address] [place] [address]., [address] Blood 01/20/2025 8:53 AM LAWN SPRINKLER INSTALLER 01/20/2025 8:57 AM LAWN SPRINKLER INSTALLER Rehab Freddy CEDENO LAB BLOOD ORDERABLES Final Resu lt Performing Organization Address City/[facility]/ZIP Co de Phone Number BILLIE [address] [facility] [address] [place] [address] * Differential, auto (01/20/2025 8:53 AM LAWN SPRINKLER INSTALLER) Neutrophil abs 5.4 1.5 - 6.5 K/cumm Comment:Testing performed by : [address] [address] Imm gran abs 0.1 0.0 - 0.1 K/cumm [facility] Comment:Testing performed by : [address] [address] Lymphocyte abs 1.4 0.8 - 3.3 K/cumm [facility] Comment:Testing performed by : [address] [address] Monocyte abs 0.5 0.2 - 0.8 K/cumm [facility] Comment:Testing performed by : [address] [address] Eosinophil abs 0.1 0.0 - 0.5 K/cumm [facility] Comment:Testing performed by : [address] [address] Basophil abs 0.0 0.0 - 0.1 K/cumm [facility] Comment:Testing performed by : [address] [address] Neutrophil pct 71.8 % [facility] Comment: Interpretive Data Percent cell count reference ranges are not reported, since discordance with absolute values may lead to misinterpretation of CBC data. Current Interpretive Data was last revised on 2018. Testing performed by: [address] [address] Imm gran pct 0.9 % [facility] Comment: Interpretive Data Percent cell count reference ranges are not reported, since discordance with absolute values may lead to misinterpretation of CBC data. Current Interpretive Data was last revised on 2018. Testing performed by: [address] [address] Lymphocyte pct 19.1 % [facility] Comment: Interpretive Data Percent cell count reference ranges are not reported, since discordance with absolute values may lead to misinterpretation of CBC data. Current Interpretive Data was last revised on 2018. Testing performed by: [address] [place] [address] Monocyte pct 6.0 % [facility] Comment: Interpretive Data Percent cell count reference ranges are not reported, since discordance with absolute values may lead to misinterpretation of CBC data. Current Interpretive Data was last revised on 2018. Testing performed by: [address] [address] Eosinophil pct 1.7 % [facility] Comment: Interpretive Data Percent cell count reference ranges are not reported, since discordance with absolute values may lead to misinterpretation of CBC data. Current Interpretive Data was last revised on 2018. Testing performed by: [address] [address] Basophil pct 0.5 % [facility] Comment: Interpretive Data Percent cell count reference ranges are not reported, since discordance with absolute values may lead to misinterpretation of CBC data. Current Interpretive Data was last revised on 2018. Testing performed by: [address] [address] Blood 01/20/2025 8:53 AM LAWN SPRINKLER INSTALLER 01/20/2025 8:57 AM LAWN SPRINKLER INSTALLER us Gerhard Hayes MD LAB BLOOD ORDERABLES Final Resu lt [address] [place] [address] * Thyroid Function Morrison (01/20/2025 8:53 AM LAWN SPRINKLER INSTALLER) TSH 3.29 0.30 - 4.20 mcIUnit/mL Comment:Testing performed by : [address] [address] Blood 01/20/2025 8:53 AM LAWN SPRINKLER INSTALLER 01/20/2025 11:15 AM LAWN SPRINKLER INSTALLER us Lamine Trevino MD LAB BLOOD ORDERABLES Final Result [address] [place] [address] * (ABNORMAL) CBC with auto differential (01/20/2025 8:53 AM LAWN SPRINKLER INSTALLER) [facility] WBC 7.5 3.8 - 9.9 K/cumm Comment:Testing performed by : [address], [address] Hgb 15.1 13.0 - 17.5 g/dL BILLIE Comment:Testing performed by : [address], [address] Hct 41.5 38.9 - 50.3 % BILLIE Comment:Testing performed by : [address], [address] Plt 236 150 - 400 K/cumm BILLIE Comment:Testing performed by : [address], [address] MPV 9.3 9.1 - 12.3 fL BILLIE Comment:Testing performed by : [address], [address] RBC 5.05 4.30 - 5.80 M/cumm BILLIE Comment:Testing performed by : [address], [address] MCV 82.2 81.3 - 96.4 fL BILLIE Comment:Testing performed by : [address], [address] MCH 29.9 27.1 - 33.3 pg BILLIE Comment:Testing performed by : [address], [address] MCHC 36.4(H) 32.3 - 35.7 g/dL BILLIE Comment:Testing performed by : [address], [address] RDW CV 12.3 11.1 - 14.9 % BILLIE Comment:Testing performed by : [address], [address] RDW SD 36.7 35.7 - 48.1 fL BILLIE Comment:Testing performed by : [address], [address] NRBC abs 0.00 0.00 - 0.01 K/cumm IBLLIE YOU Comment:Testing performed by : [address] [address] Blood 01/20/2025 8:53 AM LAWN SPRINKLER INSTALLER 01/20/2025 8:57 AM LAWN SPRINKLER INSTALLER [facility] LAB BLOOD ORDERABLES Final Resu lt Performing Organization Address [facility] Co de Phone Number CHASE[address] [place] [address] * (ABNORMAL) Valproic acid level, total (01/20/2025 8:53 AM LAWN SPRINKLER INSTALLER) Pathologist [facility] Valproic Acid <3.0(L) 50.0 - 100.0 mcg/mL Blood 01/20/2025 8:53 AM LAWN SPRINKLER INSTALLER 01/20/2025 10:24 AM LAWN SPRINKLER INSTALLER [facility] LAB BLOOD ORDERABLES Final Resu lt Performing Organization Address [facility] Co de Phone Number CHASE[address] [address] * (ABNORMAL) Comprehensive metabolic panel (01/20/2025 8:53 AM LAWN SPRINKLER INSTALLER) Pathologist [facility] Sodium 120(C) 135 - 145 mmol/L Comment: Critical Result called to and read back by [email or web address], DATE: 2025-01-20 09:26:42 BY: [email or web address] Testing performed by: [address] [address] Potassium, pl 4.8 3.3 - 4.9 mmol/L BILLIE YOU Comment:Testing performed by : [address] [address] Chloride 86(L) 97 - 110 mmol/L BILLIE YOU Comment:Testing performed by : [address] [address] CO2 26 22 - 32 mmol/L BILLIE YOU Comment:Testing performed by : [address] [address] Anion gap 8 2 - 15 mmol/L BILLIE Comment:Testing performed by : [address] [address] BUN 7 6 - 25 mg/dL BILLIE Comment:Testing performed by : [address] [address] Creatinine 0.50(L) 0.80 - 1.30 mg/dL BILLIE Comment:Testing performed by : [address] [address] Glucose 99 70 - 199 mg/dL [facility] Comment: Interpretive Data Fasting glucose >/= 126 mg/dl is diagnostic for diabetes. Fasting is defined as no caloric intake for at least 8 hours. Fasting glucose between 100 mg/dl to 125 mg/dl is diagnostic of prediabetes. In a patient with classic symptoms of hyperglycemia or hyperglycemic crisis, a random glucose >/= 200 mg/dl is diagnostic for diabetes. In the absence of unequivocal hyperglycemia, results should be confirmed by repeat testing. The classification and Diagnosis of Diabetes Diabetes Care 2021; 46: S19-S40. Current interpretive data was last revised 2022. Testing performed by: [address] [address] Calcium 9.8 8.5 - 10.3 mg/dL [facility] Comment:Testing performed by : [address] [address] Bilirubin, total 0.4 0.1 - 1.2 mg/dL [facility] Comment:Testing performed by : [address] [address] Protein, pl 7.8 6.5 - 8.5 g/dL BILLIE Comment:Testing performed by : [address] [address] Albumin 4.8 3.5 - 5.0 g/dL BILLIE Comment:Testing performed by : [address] [address] Alk phos 131(H) 40 - 130 Units/L BILLIE Comment:Testing performed by : [address] [address] ALT 9 7 - 55 Units/L BILLIE YOU Comment:Testing performed by : [address] [address] AST 25 10 - 50 Units/L BILLIE YOU Comment:Testing performed by : [address] [address] Blood 01/20/2025 8:53 AM LAWN SPRINKLER INSTALLER 01/20/2025 8:57 AM LAWN SPRINKLER INSTALLER us Rehab Freddy CEDENO LAB BLOOD ORDERABLES Final Resu lt Performing Organization Address [facility] Co de Phone Number BILLIE [address] [place] [address] * POCT glucose (01/20/2025 8:38 AM LAWN SPRINKLER INSTALLER) [facility] Glucose, POC 103 70 - 199 mg/dL Comment:Testing performed by : [address] [address] Blood 01/20/2025 8:38 AM LAWN SPRINKLER INSTALLER 01/20/2025 8:38 AM LAWN SPRINKLER INSTALLER Notinfile Unknown LAB POCT ORDERABLES - DEVICE F inal Result Performing Organization Address [facility] Co de Phone Number BILLIE [address] [place] [address] from Last 3 Months Insurance [employer] [facility] IDPA Advance Directives For more information, please contact: [phone] * Full Code (Latest Code Status on File) Date Activated Date Inactivated Comments 01/20/2025 11:35 AM 01/22/2025 6:28 PM Care Teams Layer Up Relationship Specialty Start Date End Date Unknown, Notinfile PCP - General 01/20/25
--- OUTSIDE RECORDS SUMMARY | 2025-02-06 14:52 | XMS_ITS | Encounter Summary ---
Author Organization [facility] Address [address] [place] [address] Care Team Providers Care Slot Tag Inserter Name Role Phone Avis Clark MD Unavailable [phone] Encounter Details Date Type Department Care Team (Latest Contact Info) Description 02/06/2025 Travel Social History Tobacco Use Types Packs/Day Years Used Date Smoking Tobacco: Never Passive Smoke Exposure: Yes Smokeless Tobacco: Never Alcohol Use Standard Drinks/Week Comments Never 0 [...] on file Sexual Orientation Not on file documented as of this encounter Functional Status Functional Status Response Date of Assess ment Is person deaf or have serious hearing difficult y? No 01/17/2020 Is person blind or have serious difficulty seein g? No 01/17/2020 Does person have serious dif ficulty walking/climbing stairs? No 01/17/2020 Does person have difficulty dressing/bathing? No 01/17/2020 Does person have difficulty doing errands alone? Yes 01/17/2020 Cognitive Status Response Date of Assessm ent Does person have difficulty concentrating/remembering/making decisions? Yes 01/17/2020 documented as of this encounter Plan of Treatment Upcoming Encounters Date Type Department Care Team (Late st Contact Info) Description 04/24/2025 11:30 AM CDT Appointment [facility] - Neurology [address] [place] [address] [place] [address] Gayla Diaz MD [address] [facility] [address] documented as of this encounter Visit Diagnoses Not on filedocumented in this encounter Care Teams Slot Tag Inserter Relationship Specialty Start Date End Date Avis Clark MD PCP - Attributed-[employer] [place] 08/23/22 documented as of this encounter
--- OUTSIDE RECORDS SUMMARY | 2025-02-06 14:52 | XMS_ITS | Clinical Summary ---
Author Organization [facility] Address [address] [place] [address] Care Team Providers Care Inspector Filters Name Role Phone Unknown, Notinfile Primary Care Provider Unavail able Allergies No known active allergies Medications OXcarbazepine [...] with constipation and overflow incont inence 03/30/2013 Encounters Date Type Department Care Team Description 01/20/2025 8:33 AM TAR MAN - 01/22/2025 2:23 PM TAR MAN Hospital Encounter [place] [address] [address] [place] [id number] Gerhard Hayes MD Altwal, Shadi Adel, MD Singh, Anjanya Devendra, MD Seizure (HCC) (Primary Dx); Hyponatremia Discharge Disposition: Discharge to home or self care from Last 3 Months Immunizations Immunization Administration Dates Next Due DTaP [...] 7-Valent 01/30/20 06,05/09/2005,02/12/2005,12/16 Tdap 07/02/2015 Varicella 10/16/2008,10/21/2005 Surgical History Surgery Date Site/Laterality Comments DENTAL SURGERY Medical History Medical History Date Comments Developmental delay Constipation Epilepsy (HCC) 2013 Family History Medical History Relation Name Comments Developmental delay Brother No Known Problems Father No Known Problems Maternal Grandfather COPD Maternal Grandmother Hypertension Maternal Grandmother Anemia Mother Asthma Mother Hypothyroidism Mother Blindness Sister partial Relation Name Status Comments Brother Father Maternal Grandfather Alive Maternal Grandmother Mother Sister Social History Tobacco Use Types Packs/Day Years [...] on file Legal Sex Male 1:08 AM TAR MAN Gender Identity Not on file Sexual Orientation Not on file Obstetrics History Last Filed Vital Signs Vital Sign Reading Time Taken Comments Blood Pressure 119/70 01/22/2025 7:38 AM TAR MAN Pulse 72 01/22/2025 7:38 AM TAR MAN Temperature 36.3 C (97.3 F) 01/22/2025 7:38 AM TAR MAN Respiratory Rate 18 01/22/2025 7:38 AM TAR MAN Oxygen Saturation 100% 01/22/2025 7:38 AM TAR MAN Inhaled Oxygen Concentration - - Weight 57.4 kg (126 lb 9.6 oz) 01/20/2025 2:46 P M TAR MAN Height 170.2 cm (5' 7 ) 01/20/2025 2:46 PM TAR MAN Body Mass Index 19.83 01/20/2025 2:46 PM TAR MAN Plan of Treatment Health Maintenance Due Date Last Done Comments Depression Screening 2004 Hepatitis C Screening 2004 Regular Well Visit/Exam 18-64 2022 Meningococcal B Vaccine (2 o f 2 - Bexsero SCDM 2-dose series) 03/10/2024 09/09/2023 DTaP/Tdap/Td Vaccine (7 - Td or Tdap) 07/02/2025 07/02/2015, 06/25/2010, 01/29/2006, Additional history exists Hepatitis B Screening Completed 05/09/2005 , 02/12/2005, 2004, Additional history exists Pneumococcal vaccine <65 Completed 006, 05/09/2005, 02/12/2005, Additional history exists Varicella Vaccines Completed 10/16/2008, 10/21/2005 HPV Vaccines Completed 06/22/2018, 07/24/2017 Meningococcal Vaccine Completed 09/09/2023, 015 Influenza Vaccine Completed 01/22/2025, , 01/17/2020, Additional history exists Procedures Procedure Name Priority Date/Time Associated Diagnosis Comments EGFR Routine 01/22/2025 5:53 AM TAR MAN DIFFERENTIAL AUTO Routine 01/22/2025 5:5 3 AM TAR MAN CORTISOL Timed 01/22/2025 5:53 AM TAR MAN PHOSPHORUS Routine 01/22/2025 5:53 AM TAR MAN MAGNESIUM Routine 01/22/2025 5:53 AM TAR MAN BASIC METABOLIC PANEL Routine 01/22/2025 5:53 AM TAR MAN CBC WITH AUTO DIFFERENTIAL Routine 01/22/2025 5:53 AM TAR MAN SODIUM LEVEL Timed 01/21/2025 9:11 AM TAR MAN EGFR Routine 01/21/2025 5:42 AM TAR MAN DIFFERENTIAL AUTO Routine 01/21/2025 5:4 2 AM TAR MAN SODIUM LEVEL Timed 01/21/2025 5:42 AM TAR MAN PHOSPHORUS Routine 01/21/2025 5:42 AM TAR MAN MAGNESIUM Routine 01/21/2025 5:42 AM TAR MAN BASIC METABOLIC PANEL Routine 01/21/2025 5:42 AM TAR MAN CBC WITH AUTO DIFFERENTIAL Routine 01/21/2025 5:42 AM TAR MAN SODIUM LEVEL Timed 01/20/2025 7:49 PM TAR MAN SODIUM LEVEL STAT 01/20/2025 5:33 PM TAR MAN EGFR STAT 01/20/2025 12:58 PM TAR MAN BASIC METABOLIC PANEL STAT 01/20/2025 12:58 PM TAR MAN OSMOLALITY, BLOOD STAT 01/20/2025 12: 58 PM TAR MAN CREATININE, URINE, RANDOM Routine 01/20/2025 11:13 AM TAR MAN SODIUM, URINE, RANDOM Routine 01/20/2025 11:13 AM TAR MAN OSMOLALITY, URINE STAT 01/20/2025 11: 12 AM TAR MAN URINALYSIS AND REFLEX TO MICROSCOPIC AND CULTURE STAT 01/20/2025 11:12 AM TAR MAN XR CHEST 1 VIEW ED 01/20/2025 9:11 AM TAR MAN THYROID FUNCTION CASCADE Add-On 01/20/2025 8:53 AM TAR MAN EGFR STAT 01/20/2025 8:53 AM TAR MAN DIFFERENTIAL AUTO STAT 01/20/2025 8:5 3 AM TAR MAN VALPROIC ACID LEVEL, TOTAL STAT 01/20/2025 8:53 AM TAR MAN COMPREHENSIVE METABOLIC PANEL STAT 01/20/2025 8:53 AM TAR MAN CBC WITH AUTO DIFFERENTIAL STAT 01/20/2025 8:53 AM TAR MAN INFLUENZA A/B, RSV, AND COVID-19 PCR STAT 01/20/2025 8:53 AM TAR MAN POCT GLUCOSE DEVICE Routine 01/20/2025 8 :38 AM TAR MAN from Last 3 Months Results * eGFR (01/22/2025 5:53 AM TAR MAN) Pathologist [facility] eGFR >90 >=60 mL/min/1. 73 m2 Comment: [...] was last reviewed 2021. Testing performed by: [address] [address] Blood 01/22/2025 5:53 AM TAR MAN 01/22/2025 6:03 AM TAR MAN Susan Yu NP LAB BLOOD ORDERABLES Cely hernandez Result [facility] [address] Department [place] [address] * Differential, auto (01/22/2025 5:53 AM TAR MAN) Neutrophil abs 4.6 1.5 - 6.5 K/cumm Comment:Testing performed by : [address] [address] Imm gran abs 0.1 0.0 - 0.1 K/cumm BILLIE Comment:Testing performed by : [address] [address] Lymphocyte abs 1.6 0.8 - 3.3 K/cumm BILLIE Comment:Testing performed by : [address] [address] Monocyte abs 0.6 0.2 - 0.8 K/cumm BILLIE Comment:Testing performed by : [address] [address] Eosinophil abs 0.1 0.0 - 0.5 K/cumm BILLIE Comment:Testing performed by : [address] [place]., [address] Basophil abs 0.0 0.0 - 0.1 K/cumm BILLIE Comment:Testing performed by : [address] [address] Neutrophil pct 65.8 % [facility] Comment: Interpretive Data Percent cell count reference ranges are not reported, since discordance with absolute values may lead to misinterpretation of CBC data. Current Interpretive Data was last revised on 2018. Testing performed by: [address] [address] Imm gran pct 0.9 % [facility] Comment: Interpretive Data Percent cell count reference ranges are not reported, since discordance with absolute values may lead to misinterpretation of CBC data. Current Interpretive Data was last revised on 2018. Testing performed by: [address] [address] Lymphocyte pct 22.8 % [facility] Comment: Interpretive Data Percent cell count reference ranges are not reported, since discordance with absolute values may lead to misinterpretation of CBC data. Current Interpretive Data was last revised on 2018. Testing performed by: [address] [address] Monocyte pct 8.7 % [facility] Comment: Interpretive Data Percent cell count reference ranges are not reported, since discordance with absolute values may lead to misinterpretation of CBC data. Current Interpretive Data was last revised on 2018. Testing performed by: [address] [address] Eosinophil pct 1.4 % [facility] Comment: Interpretive Data Percent cell count reference ranges are not reported, since discordance with absolute values may lead to misinterpretation of CBC data. Current Interpretive Data was last revised on 2018. Testing performed by: [address] [address] Basophil pct 0.4 % [facility] Comment: Interpretive Data Percent cell count reference ranges are not reported, since discordance with absolute values may lead to misinterpretation of CBC data. Current Interpretive Data was last revised on 2018. Testing performed by: [address] [address] Blood 01/22/2025 5:53 AM TAR MAN 01/22/2025 6:03 AM TAR MAN Susan Yu PROGRESSIVE CARE MANAGER LAB BLOOD ORDERABLES Cely l Result [facility] [address] [facility] Department [place] [address] * (ABNORMAL) CBC with auto differential (01/22/2025 5:53 AM TAR MAN) WBC 6.9 3.8 - 9.9 K/cumm Comment:Testing performed by : [address], [address] Hgb 14.3 13.0 - 17.5 g/dL BILLIE Comment:Testing performed by : [address] [address] Hct 41.8 38.9 - 50.3 % [facility]IE Comment:Testing performed by : [address] [address] Plt 216 150 - 400 K/cumm [place]ILLIE Comment:Testing performed by : [address] [address] MPV 9.0(L) 9.1 - 12.3 fL [facility]IE Comment:Testing performed by : [address] [address] RBC 4.85 4.30 - 5.80 M/cumm [facility]IE Comment:Testing performed by : [address] [address] MCV 86.2 81.3 - 96.4 fL [facility] Comment:Testing performed by : [address], [address] MCH 29.5 27.1 - 33.3 pg BILLIE Comment:Testing performed by : [address] [address] MCHC 34.2 32.3 - 35.7 g/dL BILLIE Comment:Testing performed by : [address] [address] RDW CV 12.7 11.1 - 14.9 % [facility]IE Comment:Testing performed by : [address] [address] RDW SD 39.8 35.7 - 48.1 fL BILLIE YOU Comment:Testing performed by : [address] [address] NRBC abs 0.00 0.00 - 0.01 K/cumm [facility]ILLIE Comment:Testing performed by : [address], [address] Blood 01/22/2025 5:53 AM TAR MAN 01/22/2025 6:03 AM TAR MAN Susan Yu PROGRESSIVE CARE MANAGER LAB BLOOD ORDERABLES Cely l Result Performing Organization Address City/[facility]/ZIP Co de Phone Number [address] [place] [address] * Phosphorus (01/22/2025 5:53 AM TAR MAN) Phosphorus, pl 3.8 2.3 - 4.5 mg/dL Comment:Testing performed by : [address], [address] Blood 01/22/2025 5:53 AM TAR MAN 01/22/2025 6:03 AM TAR MAN Susan Yu PROGRESSIVE CARE MANAGER LAB BLOOD ORDERABLES Cely l Result [address] [place] [address] * Magnesium (01/22/2025 5:53 AM TAR MAN) Magnesium 2.1 1.4 - 2.5 mg/dL Comment:Testing performed by : [address] [address] Blood 01/22/2025 5:53 AM TAR MAN 01/22/2025 6:03 AM TAR MAN us Susan Yu NP LAB BLOOD ORDERABLES Cely l Result Performing Organization Address City/[facility]/ZIP Co de Phone Number [address] [place] [address] * Cortisol (01/22/2025 5:53 AM TAR MAN) [facility] Cortisol 10.7 4.8 - 19.5 mcg/dl Blood 01/22/2025 5:53 AM TAR MAN 01/22/2025 8:28 AM TAR MAN us Marycruz Gamboa MD LAB BLOOD ORDERABLES F inal Result Performing Organization Address [facility] Co de Phone Number [address] [place] [address] * (ABNORMAL) Basic metabolic panel (01/22/2025 5:53 AM TAR MAN) [facility] Sodium 131(L) 135 - 145 mmol/L Comment:Testing performed by : [address] [address] Potassium, pl 4.7 3.3 - 4.9 mmol/L BILLIE Comment:Testing performed by : [address] [address] Chloride 95(L) 97 - 110 mmol/L BILLIE Comment:Testing performed by : [address] [address] CO2 26 22 - 32 mmol/L B[facility]IE Comment:Testing performed by : [address] [address] Anion gap 10 2 - 15 mmol/L BILLIE Comment:Testing performed by : [address] [address] BUN 10 6 - 25 mg/dL BILLIE Comment:Testing performed by : [address] [address] Creatinine 0.60(L) 0.80 - 1.30 mg/dL BILLIE Comment:Testing performed by : [address] [address] Glucose 94 70 - 199 mg/dL BILLIE [...] was last revised 2022. Testing performed by: [address] [address] Calcium 9.9 8.5 - 10.3 mg/dL BILLIE Comment:Testing performed by : [address] [address] Blood 01/22/2025 5:53 AM TAR MAN 01/22/2025 6:03 AM TAR MAN Susan Yu PROGRESSIVE CARE MANAGER LAB BLOOD ORDERABLES Cely l Result Performing Organization Address City/[facility]/ZIP Co de Phone Number [address] [place] [address] * (ABNORMAL) Sodium level (01/21/2025 9:11 AM TAR MAN) Sodium 126(L) 135 - 145 mmol/L Comment:Testing performed by : [address] [address] Blood 01/21/2025 9:11 AM TAR MAN 01/21/2025 9:16 AM TAR MAN Susan Yu PROGRESSIVE CARE MANAGER LAB BLOOD ORDERABLES Cely l Result Performing Organization Address City/[facility]/ZIP Co de Phone Number [address] [place] [address] * eGFR (01/21/2025 5:42 AM TAR MAN) eGFR >90 >=60 mL/min/1. 73 m2 Comment: [...] was last reviewed 2021. Testing performed by: [address] [address] Blood 01/21/2025 5:42 AM TAR MAN 01/21/2025 5:57 AM TAR MAN Susan Yu PROGRESSIVE CARE MANAGER LAB BLOOD ORDERABLES Cely l Result [facility] [address] [facility] Department [place] [address] * (ABNORMAL) Differential, auto (01/21/2025 5:42 AM TAR MAN) Pathologist [facility] Neutrophil abs 8.1(H) 1.5 - 6.5 K/cumm Comment:Testing performed by : [address] [address] Imm gran abs 0.1 0.0 - 0.1 K/cumm BILLIE Comment:Testing performed by : [address] [address] Lymphocyte abs 2.2 0.8 - 3.3 K/cumm BILLIE Comment:Testing performed by : [address] [place]., [address] Monocyte abs 0.6 0.2 - 0.8 K/cumm [facility] Comment:Testing performed by : [address] [address] Eosinophil abs 0.1 0.0 - 0.5 K/cumm [facility] Comment:Testing performed by : [address] [address] Basophil abs 0.0 0.0 - 0.1 K/cumm [facility] Comment:Testing performed by : [address] [address] Neutrophil pct 73.6 % [facility] Comment: Interpretive Data Percent cell count reference ranges are not reported, since discordance with absolute values may lead to misinterpretation of CBC data. Current Interpretive Data was last revised on 2018. Testing performed by: [address] [address] Imm gran pct 0.7 % [facility] Comment: Interpretive Data Percent cell count reference ranges are not reported, since discordance with absolute values may lead to misinterpretation of CBC data. Current Interpretive Data was last revised on 2018. Testing performed by: [address] [address] Lymphocyte pct 19.5 % [facility] Comment: Interpretive Data Percent cell count reference ranges are not reported, since discordance with absolute values may lead to misinterpretation of CBC data. Current Interpretive Data was last revised on 2018. Testing performed by: [address] [address] Monocyte pct 5.2 % [facility] Comment: Interpretive Data Percent cell count reference ranges are not reported, since discordance with absolute values may lead to misinterpretation of CBC data. Current Interpretive Data was last revised on 2018. Testing performed by: [address] [address] Eosinophil pct 0.6 % [facility] Comment: Interpretive Data Percent cell count reference ranges are not reported, since discordance with absolute values may lead to misinterpretation of CBC data. Current Interpretive Data was last revised on 2018. Testing performed by: [address] [address] Basophil pct 0.4 % [facility] YOU Comment: Interpretive Data Percent cell count reference ranges are not reported, since discordance with absolute values may lead to misinterpretation of CBC data. Current Interpretive Data was last revised on 2018. Testing performed by: [address] [address] Blood 01/21/2025 5:42 AM TAR MAN 01/21/2025 5:57 AM TAR MAN us Susan Yu PROGRESSIVE CARE MANAGER LAB BLOOD ORDERABLES Cely hernandez Result [facility] Department [place] [address] * (ABNORMAL) CBC with auto differential (01/21/2025 5:42 AM TAR MAN) WBC 11.1(H) 3.8 - 9.9 K/cumm Comment:Testing performed by : [address] [address] Hgb 13.4 13.0 - 17.5 g/dL BILLIE YOU Comment:Testing performed by : [address] [address] Hct 38.0(L) 38.9 - 50.3 % [facility] YOU Comment:Testing performed by : [address] [address] Plt 220 150 - 400 K/cumm [facility] YOU Comment:Testing performed by : [address] [address] MPV 9.5 9.1 - 12.3 fL [facility] YOU Comment:Testing performed by : [address] [address] RBC 4.51 4.30 - 5.80 M/cumm [facility] YOU Comment:Testing performed by : [address] [address] MCV 84.3 81.3 - 96.4 fL [facility] YOU Comment:Testing performed by : [address] [address] MCH 29.7 27.1 - 33.3 pg BILLIE YOU Comment:Testing performed by : [address] [address] MCHC 35.3 32.3 - 35.7 g/dL [facility]ILL[facility] YOU Comment:Testing performed by : [address], [address] RDW CV 12.6 11.1 - 14.9 % [facility] YOU Comment:Testing performed by : [address], [address] RDW SD 38.3 35.7 - 48.1 fL BILLIE YOU Comment:Testing performed by : [address], [address] NRBC abs 0.00 0.00 - 0.01 K/cumm [facility]ILL[facility] YOU Comment:Testing performed by : [address], [address] Blood 01/21/2025 5:42 AM TAR MAN 01/21/2025 5:57 AM TAR MAN Susan Yu PROGRESSIVE CARE MANAGER LAB BLOOD ORDERABLES Cely l Result Performing Organization Address City/[facility]/ZIP Co de Phone Number [address] [place] [address] * (ABNORMAL) Sodium level (01/21/2025 5:42 AM TAR MAN) [facility] Sodium 124(L) 135 - 145 mmol/L Comment:Testing performed by : [address] [address] Blood 01/21/2025 5:42 AM TAR MAN 01/21/2025 5:57 AM TAR MAN Susan Yu PROGRESSIVE CARE MANAGER LAB BLOOD ORDERABLES Cely l Result Performing Organization Address City/[facility]/ZIP Co de Phone Number [address] [place] [address] * Phosphorus (01/21/2025 5:42 AM TAR MAN) [facility] Phosphorus, pl 3.2 2.3 - 4.5 mg/dL Comment:Testing performed by : [address] [address] Blood 01/21/2025 5:42 AM TAR MAN 01/21/2025 5:57 AM TAR MAN Susan Yu PROGRESSIVE CARE MANAGER LAB BLOOD ORDERABLES Cely l Result Performing Organization Address [facility] Co de Phone Number [address] [place] [address] * Magnesium (01/21/2025 5:42 AM TAR MAN) [facility] Magnesium 1.8 1.4 - 2.5 mg/dL Comment:Testing performed by : [address] [address] Blood 01/21/2025 5:42 AM TAR MAN 01/21/2025 5:57 AM TAR MAN Susan Yu PROGRESSIVE CARE MANAGER LAB BLOOD ORDERABLES Cely l Result Performing Organization Address [facility] Co de Phone Number [address] [place] [address] * (ABNORMAL) Basic metabolic panel (01/21/2025 5:42 AM TAR MAN) [facility] Sodium 124(L) 135 - 145 mmol/L Comment:Testing performed by : [address] [address] Potassium, pl 4.4 3.3 - 4.9 mmol/L BILLIE Comment:Testing performed by : [address] [address] Chloride 89(L) 97 - 110 mmol/L [facility]IE Comment:Testing performed by : [address] [address] CO2 24 22 - 32 mmol/L [facility] Comment:Testing performed by : [address] [address] Anion gap 11 2 - 15 mmol/L [facility] Comment:Testing performed by : [address] [address] BUN 7 6 - 25 mg/dL [facility] Comment:Testing performed by : [address] [address] Creatinine 0.50(L) 0.80 - 1.30 mg/dL [facility] Comment:Testing performed by : [address] [address] Glucose 95 70 - 199 mg/dL [facility] Comment: Interpretive [...] was last revised 2022. Testing performed by: [address] [address] Calcium 9.3 8.5 - 10.3 mg/dL [facility] Comment:Testing performed by : [address] [address] Blood 01/21/2025 5:42 AM TAR MAN 01/21/2025 5:57 AM TAR MAN us Susan Yu PROGRESSIVE CARE MANAGER LAB BLOOD ORDERABLES Cely l Result [facility] [address] [facility] Department [place] [address] * (ABNORMAL) Sodium level (01/20/2025 7:49 PM TAR MAN) Sodium 123(L) 135 - 145 mmol/L Comment:Testing performed by : [address] [address] Blood 01/20/2025 7:49 PM TAR MAN 01/20/2025 7:54 PM TAR MAN Susan Yu PROGRESSIVE CARE MANAGER LAB BLOOD ORDERABLES Cely l Result Performing Organization Address City/[facility] Co de Phone Number [address] [place] [address] * (ABNORMAL) Sodium level (01/20/2025 5:33 PM TAR MAN) Sodium 122(L) 135 - 145 mmol/L Comment:Testing performed by : [facility], [address] [place] [address]., [address] Blood 01/20/2025 5:33 PM TAR MAN 01/20/2025 5:42 PM TAR MAN Susan Yu PROGRESSIVE CARE MANAGER LAB BLOOD ORDERABLES Cely l Result Performing Organization Address [facility] Co de Phone Number [address] [place] [address] * eGFR (01/20/2025 12:58 PM TAR MAN) Pathologist [facility] eGFR >90 >=60 mL/min/1. 73 m2 Comment: [...] was last reviewed 2021. Testing performed by: [address] [address] Blood 01/20/2025 12:5 8 PM TAR MAN 01/20/2025 1:01 PM T[facility] MAN [facility] LAB BLOOD ORDERABLES Final Resu lt Performing Organization Address [facility] de Phone Number [place] [address] [facility] [place] [address] * (ABNORMAL) Osmolality, blood (01/20/2025 12:58 PM TAR MAN) Pathologist [facility] Osmo 256(L) 275 - 295 mOsm/kg Blood 01/20/2025 12:5 8 PM TAR MAN 01/20/2025 2:26 PM T[facility] MAN [facility] LAB BLOOD ORDERABLES Final Resu lt Performing Organization Address [facility] de Phone Number [place] [address] [place] [address] * (ABNORMAL) Basic metabolic panel (01/20/2025 12:58 PM TAR MAN) Pathologist [facility] Sodium 121(L) 135 - 145 mmol/L Comment:Testing performed by : [address] [address] Potassium, pl 4.9 3.3 - 4.9 mmol/L BILLIE Comment:Testing performed by : [address] [address] Chloride 88(L) 97 - 110 mmol/L [facility]IE Comment:Testing performed by : [address] [address] CO2 23 22 - 32 mmol/L [facility]IE Comment:Testing performed by : [address] [address] Anion gap 10 2 - 15 mmol/L [facility]IE Comment:Testing performed by : [address] [address] BUN 7 6 - 25 mg/dL CERNER MH Comment:Testing performed by : [address] [address] Creatinine 0.48(L) 0.80 - 1.30 mg/dL BILLIE YOU Comment:Testing performed by : [address] [address] Glucose 102 70 - 199 mg/dL BILLIE Comment: Interpretive [...] was last revised 2022. Testing performed by: [address] [address] Calcium 9.1 8.5 - 10.3 mg/dL [facility]IE Comment:Testing performed by : [address] [address] Blood 01/20/2025 12:5 8 PM TAR MAN 01/20/2025 1:01 PM TAR MAN [facility] LAB BLOOD ORDERABLES Final Resu lt [facility] [address] [facility] Department [place] [address] * Sodium, urine, random (01/20/2025 11:13 AM TAR MAN) Sodium, ur 133 mmol/L Comment: Interpretive Data No reference range established. Current interpretive data was last revised 2019. Urine 01/20/2025 11:1 3 AM TAR MAN 01/20/2025 12:32 PM TAR MAN [facility] CEDENO LAB URINE ORDERABLES Final Resu lt Performing Organization Address City/[facility] Co de Phone Number [facility] [address] [facility] [place] [address] * Creatinine, urine, random (01/20/2025 11:13 AM TAR MAN) Creatinine Ur 64.7 mg/dL Comment: Interpretive Data No reference range established. Current interpretive data was last revised 2019. Testing performed by: [address] [address] Urine 01/20/2025 11:1 3 AM TAR MAN 01/20/2025 11:19 AM TAR MAN us [facility] CED[facility] LAB URINE ORDERABLES Final Resu Performing Organization Address [facility] Co de Phone Number [facility] [address] [facility] [place] [address] * (ABNORMAL) Urinalysis reflex to microscopic and culture Urine (01/20/2025 11:12 AM TAR MAN) Color, ur Yellow Yellow Comment:Testing performed by : [address] [address] Clarity, ur Cloudy(A) Clear BILLIE Comment:Testing performed by : [address] [address] Specific gravity, ur 1.016 1.003 - 1.030 [facility]IE Comment:Testing performed by : [address] [address] pH, urine 7.5 BILLIE Comment: Interpretive Data U rine pH is affected by diet, medications, systemic acid-base disturbances, and renal tubular function. pH may affect urinary stone formation. For example, urine pH below 6.0 may help reduce the tendency for calcium phosphate stones and pH greater than 6.0 may reduce the tendency for uric acid stone formation. Source: Seen Current Interpretive Data was last revised on 2017 Testing performed by: [address] [address] Protein, ur ql Negative Negative BILLIE Comment:Testing performed by : [address], [place]., [address] Glucose, ur ql Negative Negative BILLIE Comment:Testing performed by : [address], [place]., [address] Ketones, ur Negative Negative BILLIE Comment:Testing performed by : [address], [place]., [address] Bilirubin, ur Negative Negative BILLIE Comment:Testing performed by : [address], [place]., [address] Blood, ur Negative Negative BILLIE Comment:Testing performed by : [address], [place]., [address] Urobilinogen, ur <2.0 <2.0 mg/dL BILLIE Comment:Testing performed by : [address], [place]., [address] Nitrite, ur Negative Negative BILLIE Comment:Testing performed by : [address], [place]., [address] Leukocyte esterase, ur Negative Negative BILLIE Comment:Testing performed by : [address], [place]., [address] UA reflex comment Reflex conditions for microscopic UA and culture not met. BILLIE Comment:Testing performed by : [address], [place]., [address] Urine 01/20/2025 11:1 2 AM TAR MAN 01/20/2025 11:19 AM TAR MAN [facility] LAB MICROBIOLOGY - GENERAL WONG ANGUIANO Final Result BILLIE 5689 [facility] Department of Laboratories [place], [place] [id number] * Osmolality, urine (01/20/2025 11:12 AM TAR MAN) Osmo, ur 536 300 - 800 mOsm/kg Urine 01/20/2025 11:1 2 AM TAR MAN 01/20/2025 12:30 PM TAR MAN [facility] LAB URINE ORDERABLES Final Resu lt BILLIE 4500 [facility] Department [place] [address] * XR Chest 1 Vw Portable (01/20/2025 9:11 AM TAR MAN) Anatomical Region Laterality Modality Body, Chest N/A Computed Radiogr aphy 01/20/2025 9:28 AM TAR MAN Narrative 01/20/2025 9:28 AM TAR MAN EXAM DESCRIPTION: XR CHEST 1 VIEW REASON [...] Tan Milner M.D. MM: MM Report ID: [id number] Reading Location: [id number] Procedure Note Tan Milner MD - 01/20/2025 [...] Tan Milner M.D. MM: MM Report ID: [id number] Reading Location: [id number] [facility] IMG XR PROCEDURES Final Result * Influenza A/B, RSV, and COVID-19 PCR Nasopharyngeal (01/20/2025 8:53 AM TAR MAN) [facility] COVID-19 RNA Negative Negative Comment:Testing performed by : [address] [address] Influenza A RNA Negative Negative [facility] Comment:Testing performed by : [address] [address] Influenza B RNA Negative Negative [facility] Comment:Testing performed by : [address] [address] RSV RNA Negative Negative [facility] Comment: Interpretive data: Testing performed by [facility]. This test is performed using the Narrative Xpert Xpress CoV-2/Flu/RSV plus assay. This is a multiplex, real-time reverse transcriptase PCR assay intended for the qualitative detection of nucleic acid from SARS-CoV-2, influenza A, influenza B, and respiratory syncytial virus. This assay has been cleared by the [place] Food and Drug administration. The performance characteristics have been verified by the [facility]. Results must be considered in the clinical context, and a negative result does not rule out infection. Interpretive Data last revised 2023 Testing performed by: [address] [address] Nasopharyngeal 01/20/2025 8: 53 AM TAR MAN 01/20/2025 8:57 AM TAR MAN Narrative BILLIE - 01/20/2025 9:54 AM TAR MAN Is the Patient experiencing symptoms consistent with COVID?->Unknown [facility] MICROBIOLOGY - GENERAL WONG ANGUIANO Final Result BILLIE 5638 [facility] Department [place] [address] * eGFR (01/20/2025 8:53 AM TAR MAN) [facility] eGFR >90 >=60 mL/min/1. 73 m2 Comment: [...] was last reviewed 2021. Testing performed by: [address] [address] Blood 01/20/2025 8:53 AM TAR MAN 01/20/2025 8:57 AM TAR MAN us [facility] LAB BLOOD ORDERABLES Final Resu lt BILLIE 4725 [facility] Department [place] [address] * Differential, auto (01/20/2025 8:53 AM TAR MAN) Neutrophil abs 5.4 1.5 - 6.5 K/cumm Comment:Testing performed by : [address] [address] Imm gran abs 0.1 0.0 - 0.1 K/cumm BILLIE YOU Comment:Testing performed by : [address] [address] Lymphocyte abs 1.4 0.8 - 3.3 K/cumm BILLIE YOU Comment:Testing performed by : [address] [address] Monocyte abs 0.5 0.2 - 0.8 K/cumm BILLIE YOU Comment:Testing performed by : [address] [address] Eosinophil abs 0.1 0.0 - 0.5 K/cumm [facility] Comment:Testing performed by : [address] [address] Basophil abs 0.0 0.0 - 0.1 K/cumm CERCHRISTINE Comment:Testing performed by : [address] [address] Neutrophil pct 71.8 % [facility] Comment: Interpretive Data Percent cell count reference ranges are not reported, since discordance with absolute values may lead to misinterpretation of CBC data. Current Interpretive Data was last revised on 2018. Testing performed by: [address] [address] Imm gran pct 0.9 % [facility] Comment: Interpretive Data Percent cell count reference ranges are not reported, since discordance with absolute values may lead to misinterpretation of CBC data. Current Interpretive Data was last revised on 2018. Testing performed by: [address] [address] Lymphocyte pct 19.1 % [facility] Comment: Interpretive Data Percent cell count reference ranges are not reported, since discordance with absolute values may lead to misinterpretation of CBC data. Current Interpretive Data was last revised on 2018. Testing performed by: [address] [address] Monocyte pct 6.0 % [facility] Comment: Interpretive Data Percent cell count reference ranges are not reported, since discordance with absolute values may lead to misinterpretation of CBC data. Current Interpretive Data was last revised on 2018. Testing performed by: [address] [address] Eosinophil pct 1.7 % [facility] Comment: Interpretive Data Percent cell count reference ranges are not reported, since discordance with absolute values may lead to misinterpretation of CBC data. Current Interpretive Data was last revised on 2018. Testing performed by: [address] [address] Basophil pct 0.5 % [facility] Comment: Interpretive Data Percent cell count reference ranges are not reported, since discordance with absolute values may lead to misinterpretation of CBC data. Current Interpretive Data was last revised on 2018. Testing performed by: [address] [address] Blood 01/20/2025 8:53 AM TAR MAN 01/20/2025 8:57 AM TAR MAN Gerhard Hayes MD LAB BLOOD ORDERABLES Final Resu lt Performing Organization Address [facility] Co de Phone Number [address] [place] [address] * Thyroid Function [place] (01/20/2025 8:53 AM TAR MAN) Pathologist [facility] TSH 3.29 0.30 - 4.20 mcIUnit/mL Comment:Testing performed by : [address] [address] Blood 01/20/2025 8:53 AM TAR MAN 01/20/2025 11:15 AM TAR MAN Lamine Trevino MD LAB BLOOD ORDERABLES Final Result Performing Organization Address [facility] de Phone Number [address] [place] [address] * (ABNORMAL) CBC with auto differential (01/20/2025 8:53 AM TAR MAN) Pathologist [facility] WBC 7.5 3.8 - 9.9 K/cumm Comment:Testing performed by : [address] [address] Hgb 15.1 13.0 - 17.5 g/dL BILLIE YOU Comment:Testing performed by : [address] [address] Hct 41.5 38.9 - 50.3 % BILLIE YOU Comment:Testing performed by : [address] [address] Plt 236 150 - 400 K/cumm BILLIE YOU Comment:Testing performed by : [address] [place]., [address] MPV 9.3 9.1 - 12.3 fL BILLIE YOU Comment:Testing performed by : [address], [address] RBC 5.05 4.30 - 5.80 M/cumm BILLIE YOU Comment:Testing performed by : [address] [address] MCV 82.2 81.3 - 96.4 fL BILLIE YOU Comment:Testing performed by : [address] [address] MCH 29.9 27.1 - 33.3 pg BILLIE YOU Comment:Testing performed by : [address] [address] MCHC 36.4(H) 32.3 - 35.7 g/dL BILLIE YOU Comment:Testing performed by : [address], [address] RDW CV 12.3 11.1 - 14.9 % BILLIE YOU Comment:Testing performed by : [address], [address] RDW SD 36.7 35.7 - 48.1 fL BILLIE YOU Comment:Testing performed by : [address] [address] NRBC abs 0.00 0.00 - 0.01 K/cumm BILLIE YOU Comment:Testing performed by : [address] [address] Blood 01/20/2025 8:53 AM TAR MAN 01/20/2025 8:57 AM TAR MAN us [facility] LAB BLOOD ORDERABLES Final Resu lt BILLIE YOU 6423 [facility] Department [place] [address] * (ABNORMAL) Valproic acid level, total (01/20/2025 8:53 AM TAR MAN) Valproic Acid <3.0(L) 50.0 - 100.0 mcg/mL Blood 01/20/2025 8:53 AM TAR MAN 01/20/2025 10:24 AM TAR MAN us [facility] LAB BLOOD ORDERABLES Final Resu lt BILLIE 4500 [facility] Department [place] [address] * (ABNORMAL) Comprehensive metabolic panel (01/20/2025 8:53 AM TAR MAN) Sodium 120(C) 135 - 145 mmol/L Comment: Critical Result called to and read back by [email or web address], DATE: 2025-01-20 09:26:42 BY: [email or web address] Testing performed by: [address] [address] Potassium, pl 4.8 3.3 - 4.9 mmol/L BILLIE Comment:Testing performed by : [address] [address] Chloride 86(L) 97 - 110 mmol/L BILLIE Comment:Testing performed by : [address] [address] CO2 26 22 - 32 mmol/L BILLIE Comment:Testing performed by : [address] [address] Anion gap 8 2 - 15 mmol/L BILLIE Comment:Testing performed by : [address] [address] BUN 7 6 - 25 mg/dL BILLIE Comment:Testing performed by : [address] [address] Creatinine 0.50(L) 0.80 - 1.30 mg/dL BILLIE Comment:Testing performed by : [address] [address] Glucose 99 70 - 199 mg/dL BILLIE Comment: Interpretive [...] was last revised 2022. Testing performed by: [address] [address] Calcium 9.8 8.5 - 10.3 mg/dL BILLIE Comment:Testing performed by : [address] [address] Bilirubin, total 0.4 0.1 - 1.2 mg/dL BILLIE Comment:Testing performed by : [address] [address] Protein, pl 7.8 6.5 - 8.5 g/dL BILLIE Comment:Testing performed by : [address] [address] Albumin 4.8 3.5 - 5.0 g/dL BILLIE Comment:Testing performed by : [address] [address] Alk phos 131(H) 40 - 130 Units/L BILLIE Comment:Testing performed by : [address] [address] ALT 9 7 - 55 Units/L BILLIE Comment:Testing performed by : [address] [address] AST 25 10 - 50 Units/L BILLIE Comment:Testing performed by : [address] [address] Blood 01/20/2025 8:53 AM TAR MAN 01/20/2025 8:57 AM TAR MAN us Re[facility] LAB BLOOD ORDERABLES Final Resu lt BILLIE YOU 5715 [facility] Department [place] [address] * POCT glucose (01/20/2025 8:38 AM TAR MAN) [facility] Signature Glucose, POC 103 70 - 199 mg/dL Comment:Testing performed by : [facility], [address] [place] [address], [place]., [address] Blood 01/20/2025 8:38 AM TAR MAN 01/20/2025 8:38 AM TAR MAN us Notinfile Unknown LAB POCT ORDERABLES - DEVICE F inal Result BILLIE 45[address] [facility] Department [place] [address] from Last 3 Months Insurance [facility] PLAN [facility] Advance Directives For more information, please contact: [phone] * Full Code (Latest Code Status on File) Date Activated Date Inactivated Comments 01/20/2025 11:35 AM 01/22/2025 6:28 PM Care Teams Inspector Filters Relationship Specialty Start Date End Date Unknown, Notinfile PCP - General 01/20/25
--- OUTSIDE RECORDS SUMMARY | 2025-02-06 14:52 | XMS_ITS | Encounter Summary ---
Author Organization [facility] Address [address] [place] [address] Care Team Providers Care Crowning Hammer Operator Name Role Phone Avis Clark MD Unavailable [phone] Reason for Referral * Consultation (Routine) - Open Specialty Diagnoses / Procedures Referred By Contac t Referred To Contact yard conductor Diagnoses Tooth pain Gayla Diaz MD [address] [facility] [place] [address] Referral ID Status Reason Start Date Expiration Date V isits Requested Visits Authorized [id number] Open Specialty Services Required 02/06/2025 02/06/2026 1 1 Encounter Details Date Type Department Care Team (Late st Contact Info) Description 02/06/2025 10:30 AM CDT Hospital Encounter [facility] Pediatrics - Neurology [address] [place] [address] [place] [address] Gayla Diaz MD [address] [place] [address] [place] [address] Social History Tobacco Use Types Packs/Day Years [...] on file documented as of this encounter Last Filed Vital Signs Vital Sign Reading Time Taken Comments Blood Pressure 124/72 02/06/2025 10:38 AM CDT Pulse - - Temperature - - Respiratory Rate - - Oxygen Saturation - - Inhaled Oxygen Concentration - - Weight 53.7 kg (118 lb 6.2 oz) 02/06/2025 10:38 AM CDT Height 170.3 cm (5' 7.05 ) 02/06/2025 10:38 AM C DT Body Mass Index 18.52 02/06/2025 10:38 AM CDT documented in this encounter Functional Status Functional Status Response [...] Yes 01/17/2020 documented as of this encounter Discharge Instructions * Patient Instructions* Gayla Diaz MD - 02/06/2025 11:38 AM CDT Bill was seen in the neurology clinic for follow up. We would like to do several things today: Get labs - this will be to check his electrolytes (especially his sodium level), his liver labs andhis medication levels. Please get this done today. We will plan to continue his same doses of his medications. If his Depakene level is very low OR ifhe continues to have low sodium levels, we will plan to change his medications. We talked about transitioning to a new medication called Lacosamide (Vimpat). If we need to, we may consider switching to this medication and off of the oxcarbazepine. We will call you with this plan - please be on the look out for our call. I have placed a referral to an oral surgeon. Please ask your insurance about where Bill can go. Please be sure to bring the information that his dentist has given him regarding the need for surgery. Our office number is [phone] (press [phone] for nursing line) for questions or concerns. Please return to clinic in 3 months. documented in this encounter Plan of Treatment Upcoming Encounters Date Type Department Care Team (Late st Contact Info) Description 04/24/2025 11:30 AM CDT Appointment [facility] Pediatrics - Neurology [facility] [place] [address] Gayla Diaz MD [facility] [facility] [place] [address] Scheduled Orders Name Type Priority Associated Diagnoses Orde r Schedule COMPREHENSIVE METABOLIC PANEL Lab Routine Localization-related (focal) (partial) idiopathic epilepsy and epileptic syndromes with seizures of localized onset, intractable, without status epilepticus (HCC) On valproate therapy Hyponatremia 1 Occurrences starting 02/06/2025 until 02/01/2026 CBC NO DIFFERENTIAL Lab Routine Localization-related (focal) (partial) idiopathic epilepsy and epileptic syndromes with seizures of localized onset, intractable, without status epilepticus (HCC) On valproate therapy 1 Occurrences starting 02/06/2025 until 02/01/2026 VALPROIC ACID LEVEL Lab Routine Localization-related (focal) (partial) idiopathic epilepsy and epileptic syndromes with seizures of localized onset, intractable, without status epilepticus (HCC) On valproate therapy 1 Occurrences starting 02/06/2025 until 02/01/2026 AMMONIA Lab Routine Localization-related (focal) (partial) idiopathic epilepsy and epileptic syndromes with seizures of localized onset, intractable, without status epilepticus (HCC) On valproate therapy 1 Occurrences starting 02/06/2025 until 02/01/2026 COMPREHENSIVE METABOLIC PANEL Lab Routine Localization-related (focal) (partial) idiopathic epilepsy and epileptic syndromes with seizures of localized onset, intractable, without status epilepticus (HCC) On valproate therapy Hyponatremia 1 Occurrences starting 02/06/2025 until 02/06/2025 CBC NO DIFFERENTIAL Lab Routine Localization-related (focal) (partial) idiopathic epilepsy and epileptic syndromes with seizures of localized onset, intractable, without status epilepticus (HCC) On valproate therapy 1 Occurrences starting 02/06/2025 until 02/06/2025 VALPROIC ACID LEVEL Lab Routine Localization-related (focal) (partial) idiopathic epilepsy and epileptic syndromes with seizures of localized onset, intractable, without status epilepticus (HCC) On valproate therapy 1 Occurrences starting 02/06/2025 until 02/06/2025 AMMONIA Lab Routine Localization-related (focal) (partial) idiopathic epilepsy and epileptic syndromes with seizures of localized onset, intractable, without status epilepticus (HCC) On valproate therapy 1 Occurrences starting 02/06/2025 until 02/06/2025 OXCARBAZEPINE BLOOD Lab Routine Localization-related (focal) (partial) idiopathic epilepsy and epileptic syndromes with seizures of localized onset, intractable, without status epilepticus (HCC) 1 Occurrences starting 02/06/2025 until 02/01/2026 OXCARBAZEPINE BLOOD Lab Routine Localization-related (focal) (partial) idiopathic epilepsy and epileptic syndromes with seizures of localized onset, intractable, without status epilepticus (HCC) 1 Occurrences starting 02/06/2025 until 02/06/2025 Scheduled Referrals Name Type Priority Associated Diagnoses Order Schedule Referral to Oral Maxillofacial Surgery Outpatient Referral Routine Tooth pain Expected: 02/06/2025, Expires: 02/06/2026 documented as of this encounter Visit Diagnoses Diagnosis Localization-related (focal) (partial) idiopathic epilepsy and epileptic syndromes with seizures of localized onset, intractable, 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
--- OUTSIDE RECORDS SUMMARY | 2025-02-06 14:52 | XMS_ITS | Clinical Summary ---
Author Organization [facility] Address [address] [place] [address] Care Team Providers Care Temperature Regulator Name Role Phone Jarrod Doan MD Primary Care Provider [phone] Allergies No known active allergies Medications OXcarbazepine 300 MG/5ML suspension Take 8 mL at bedtime starting 01/18/20 for one week then increase to 8 mL twice a day 01/17/2020 Active ibuprofen (IBUPROFEN CHILDRENS) 100 MG/5ML suspension Take 10 mLs (200 mg total) by mouth every 4 (four) hours as needed for Fever. 273 mL 06/08/2020 Active Social History Tobacco Use Types Packs/Day Years Used Date Smoking Tobacco: Never Smokeless Tobacco: Never Alcohol Use Standard Drinks/Week Comments No 0 (1 standard drink = 0.6 oz pur e alcohol) AUDIT-C Answer Date Recorded Frequency of Alcohol Consumption Never 01/16/2020 Average Number of Drinks Not on file 020 Frequency of Binge Drinking Not on file 12/25 Sex and Gender Information Value Date Recorded Sex Assigned at Not on file Legal Sex Male 8:31 PM CDT Gender Identity Not on file Sexual Orientation Not on file Last Filed Vital Signs Vital Sign Reading Time Taken Comments Blood Pressure 111/70 06/08/2020 8:03 PM CDT Pulse 87 06/08/2020 8:03 PM CDT Temperature 36.9 C (98.5 F) 06/08/2020 8:03 PM CDT Respiratory Rate 12 06/08/2020 8:03 PM CDT Oxygen Saturation 96% 06/08/2020 8:03 PM CDT Inhaled Oxygen Concentration - - Weight 47.3 kg (104 lb 4 oz) 06/08/2020 8:03 PM CDT Height 172.1 cm (5' 7.75 ) 06/08/2020 8:03 PM CD T Body Mass Index 15.97 06/08/2020 8:03 PM CDT Plan of Treatment Health Maintenance Due Date Last Done Comments Annual Physical 2007 Meningococcal B Vaccine (1 of 2 - Standard) 2020 Hepatitis C 2022 COVID-19 Vaccine ( season) 2024 Influenza Adult (#1) 2024 01/17/2020, 11/11/2017, 11/04/2017, Additional history exists DTaP, Tdap and Td Vaccines (7 - Td or Tdap) 07/02/2025 07/02/2015, 06/25/2010, 01/29/2006, Additional history exists Hepatitis B Vaccines Completed 05/09/2005, 02/12/2005, 2004, Additional history exists Pneumococcal Vaccine: Pediatrics (0 to 5 Years) and At-Risk Patients (6 to 64 Years) Aged Out 01/29/2006, 05/09/2005, 02/12/2005, Additional history exists No longer eligible based on patient's age to complete this topic Meningococcal Vaccine Aged Out 07/02/2015 No neela shekhar eligible based on patient's age to complete this topic HPV Vaccines Completed 06/22/2018, 07/24/2017 RSV Immunizations Under 20 Months Aged Out No longer eligible based on patient's age to complete this topic Insurance [facility] Care Teams Temperature Regulator Relationship Specialty Start Date End Date Jarrod Doan MD [address] [address] PCP - General PEDIATRICS 11/17/19
--- OUTSIDE RECORDS SUMMARY | 2025-02-06 14:53 | XMS_ITS | Referral Summary ---
Author Organization [facility] Address [address] [place] [address] Care Team Providers Care Dry End Operator Name Role Phone Avis Clark MD Unavailable [phone] Source Comments [facility],non-owned Affiliates and Associated Physician Practices is amultiple site organization consisting of ambulatory clinics and hospital sitesin [place], [place], [place] and [place]. This disclosure is being madepursuant to the Care Everywhere program and may not contain all information available regarding this patient. Last updated 18.[facility] Encounters Date Type Department Care Team Description 02/06/2025 Travel 02/06/2025 10:30 AM CDT Hospital Encounter [facility] Pediatrics - Neurology [address] [facility] [place] [address] Gayla Diaz MD 01/23/2025 Travel 01/23/2025 Refill [facility] Pediatrics - Neurology [address] [place] [address] Gayla Diaz MD MEDICATION REFILL from Last 3 Months Allergies Active Allergy Reactions Criticality Noted Date Comments Penicillins Unknown 10/02/2021 Family has reactions mom avoids Medications * Be aware that medications may not be up to date on this document. Alwaysverify current medications with the patient. 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) Take 10 mL by mouth every 12 hours 600 mL 08/22/2024 02/18/2025 Active diazePAM (Valtoco) 15 MG (2 x 7.5 MG/0.1ML) nasal sprayIndications :Localization-re lated focal epilepsy with simple partial seizures (HCC) [place] 0.2 mL into the nose as needed [...] focal epilepsy with simple partial seizures (HCC) [place] 0.2 mL into the nose as needed [...] months Assessment & Plan (01/16/2020 10:05 PM MERCHANDISER RETAIL REPRESENTATIVE): Assessment: 14 year old male with history [...] clusters of seizures without return to baseline Immunizations Name Administration Dates Next Due DTAP/HEP [...] AM CDT Pulse 96 10/02/2021 3:40 PM MERCHANDISER RETAIL REPRESENTATIVE Temperature 36.6 C (97.8 F) 10/02/2021 3:40 PM MERCHANDISER RETAIL REPRESENTATIVE Respiratory Rate 15 10/02/2021 3:40 PM MERCHANDISER RETAIL REPRESENTATIVE Oxygen Saturation 97% 10/02/2021 3:40 PM MERCHANDISER RETAIL REPRESENTATIVE Inhaled Oxygen Concentration - - Weight 53.7 kg (118 lb 6.2 oz) 02/06/2025 10:38 AM CDT Height 170.3 cm (5' 7.05 ) 02/06/2025 10:38 AM C DT Body Mass Index 18.52 02/06/2025 10:38 AM CDT Functional Status Functional Status Response Date of [...] person have difficulty concentrating/remembering/making decisions? Yes 01/17/2020 Plan of Treatment Upcoming Encounters Date Type Department Care Team (Late st Contact Info) Description 04/24/2025 11:30 AM CDT Appointment [facility] Pediatrics - Neurology [facility] [facility] [address] [place] [address] Gayla Diaz MD [address] [facility] [place] [address] Advance Directives * Full Code (Latest Code Status on File) Date Activated Date Inactivated Comments 01/16/2020 9:36 PM 01/17/2020 6:52 PM Care Teams Dry End Operator Relationship Specialty Start Date End Date Avis Clark MD PCP - Attributed-[employer] 08/23/22
[2025-02-06 15:02] LABS: Valproic Acid 94.5 ug/mL (50-120)
[2025-02-06 15:07] LABS: Alanine Aminotransferase 14 U/L (6-50); Albumin Level 4.9 g/dL (3.5-5.1); Alkaline Phosphatase 108 U/L (38-126); Anion Gap 8 mmol/L (4-12); Aspartate Amino Transferase 37 U/L (17-59); Bilirubin,Total 0.4 mg/dL (0.2-1.3); Blood Urea Nitrogen 6 mg/dL (9-20); Calcium 9.3 mg/dL (8.4-10.2); Carbon Dioxide 31 mmol/L (22-30); Chloride 94 mmol/L (98-107); Estimated Glomerular Filt Rate > 60; Glucose 62 mg/dL (65-110); Potassium 4.4 mmol/L (3.4-5.0); Sodium 133 mmol/L (137-145)
== END 2025-02-06 12:31 | disposition home or self-care (01) ==
PROVIDERS: Visit Provider Psychiatry & Neurology Neurology with Special Qualifications in Child Neurology
DX: G40.019 Localization-related (focal) (partial) idiopathic epilepsy and epileptic syndromes with seizures of localized onset, intractable, without status epilepticus (principal); E87.1 Hypo-osmolality and hyponatremia; Z79.899 Other long term (current) drug therapy
CPT/HCPCS: 36415; 80053; 80164; 80183; 82140

== ENCOUNTER 2025-04-24 12:32 | Outpatient (CLI) | payer BC, SELFPAY ==
--- OUTSIDE RECORDS SUMMARY | 2025-04-24 12:37 | XMS_ITS | Encounter Summary ---
Author Organization [facility] Address [address] [place] [address] Care Team Providers Care Pile Fabric Knitter Name Role Phone Avis Clark MD Unavailable [phone] Encounter Details Date Type Department Care Team (Latest Contact Info) Description 04/24/2025 Travel Social History Tobacco Use Types Packs/Day [...] at Not on file Legal Sex Male 5:45 AM ANTISQUEAK APPLIER Gender Identity Not on file Sexual Orientation Not on file documented as of this encounter Functional Status * Is person deaf or have serious hearing difficulty? Answer Date of Assessment Author No 01/17/2020 5:03 PM Lucie Ahuja RN * Is person blind or have serious difficulty seeing? Answer Date of Assessment Author No 01/17/2020 5:03 PM Lucie Ahuja RN * Does person have serious difficulty walking/climbing stairs? Answer Date of Assessment Author No 01/17/2020 5:03 PM Lucie Ahuja RN * Does person have difficulty dressing/bathing? Answer Date of Assessment Author No 01/17/2020 5:03 PM Lucie Ahuja RN * Does person have difficulty doing errands alone? Answer Date of Assessment Author Yes 01/17/2020 5:03 PM Lucie Ahuja RN documented as of this encounter Mental Status * Does person have difficulty concentrating/remembering/making decisions? Answer Entry Date Author Yes 01/17/2020 5:03 PM Lucie Ahuja RN documented in this encounter Plan of Treatment Upcoming Encounters Date Type Department Care Team (Late st Contact Info) Description 08/07/2025 11:30 AM CDT Appointment [facility] Pediatrics - Neurology [address] [place] [address] [place] [address] Gayla Diaz MD [facility] [facility] [place] [address] documented as of this encounter Visit Diagnoses Not on filedocumented in this encounter Care Teams Pile Fabric Knitter Relationship Specialty Start Date End Date Avis Clark MD PCP - Attributed-[employer] Medicaid [place] 08/23/22 documented as of this encounter
--- OUTSIDE RECORDS SUMMARY | 2025-04-24 12:37 | XMS_ITS | Clinical Summary ---
Author Organization [facility] Address [address] [place] [address] Care Team Providers Care Wafer Production Worker Name Role Phone Unknown, Notinfile Primary Care Provider Unavail able Allergies No known active allergies Medications OXcarbazepine (TRILEPTAL) suspension 300 mg/5 mL Take 15 mL (900 mg total) by mouth 2 (two) times a day 0 Active valproate 50 mg/mL syrup Take 10 mL (500 mg total) by mouth every 12 (twelve) hours 4 Active polyethylene glycol (MIRALAX) 17 gram/dose bulk [...] Department Care Team Description 01/20/2025 8:33 AM INDUCTION MACHINE SETTER - 01/22/2025 2:23 PM INDUCTION MACHINE SETTER Hospital Encounter [place] [address] [address] [place] [address] Gerhard Hayes MD Altwal, Shadi Adel, MD Singh, Marycruz Murphy MD Seizure (HCC) (Primary Dx); [...] on file Legal Sex Male 1:08 AM INDUCTION MACHINE SETTER Gender Identity Not on file Sexual Orientation Not on file Obstetrics History Last Filed Vital Signs Vital Sign Reading Time Taken Comments Blood Pressure 119/70 01/22/2025 7:38 AM INDUCTION MACHINE SETTER Pulse 72 01/22/2025 7:38 AM INDUCTION MACHINE SETTER Temperature 36.3 C (97.3 F) 01/22/2025 7:38 AM INDUCTION MACHINE SETTER Respiratory Rate 18 01/22/2025 7:38 AM INDUCTION MACHINE SETTER Oxygen Saturation 100% 01/22/2025 7:38 AM INDUCTION MACHINE SETTER Inhaled Oxygen Concentration - - Weight 57.4 kg (126 lb 9.6 oz) 01/20/2025 2:46 P M INDUCTION MACHINE SETTER Height 170.2 cm (5' 7) 01/20/2025 2:46 PM INDUCTION MACHINE SETTER Body Mass Index 19.83 01/20/2025 2:46 PM INDUCTION MACHINE SETTER Plan of Treatment Health Maintenance Due Date [...] Diagnosis Comments EGFR Routine 01/22/2025 5:53 AM INDUCTION MACHINE SETTER DIFFERENTIAL AUTO Routine 01/22/2025 5:5 3 AM INDUCTION MACHINE SETTER CORTISOL Timed 01/22/2025 5:53 AM INDUCTION MACHINE SETTER PHOSPHORUS Routine 01/22/2025 5:53 AM INDUCTION MACHINE SETTER MAGNESIUM Routine 01/22/2025 5:53 AM INDUCTION MACHINE SETTER BASIC METABOLIC PANEL Routine 01/22/2025 5:53 AM INDUCTION MACHINE SETTER CBC WITH AUTO DIFFERENTIAL Routine 01/22/2025 5:53 AM INDUCTION MACHINE SETTER from Last 3 Months Results * eGFR (01/22/2025 5:53 AM INDUCTION MACHINE SETTER) eGFR >90 >=60 mL/min/1. 73 m2 Comment: [...] was last reviewed 2021. Testing performed by: [facility], [address] [place] [address], [place]., [address] Blood 01/22/2025 5:53 AM INDUCTION MACHINE SETTER 01/22/2025 6:03 AM INDUCTION MACHINE SETTER Susan Yu NP LAB BLOOD ORDERABLES Final Result [facility] [address] [facility] Department [place] [address] * Differential, auto (01/22/2025 5:53 AM INDUCTION MACHINE SETTER) Neutrophil abs 4.6 1.5 - 6.5 K/cumm Comment:Testing performed by : [address] [address] Imm gran abs 0.1 0.0 - 0.1 K/cumm [facility] Comment:Testing performed by : [address] [address] Lymphocyte abs 1.6 0.8 - 3.3 K/cumm [facility] Comment:Testing performed by : [address] [address] Monocyte abs 0.6 0.2 - 0.8 K/cumm [facility] Comment:Testing performed by : [address] [address] Eosinophil abs 0.1 0.0 - 0.5 K/cumm [facility] Comment:Testing performed by : [address] [address] Basophil abs 0.0 0.0 - 0.1 K/cumm [facility] Comment:Testing performed by : [address] [address] Neutrophil pct 65.8 % [facility] Comment: Interpretive Data Percent cell count reference ranges are not reported, since discordance with absolute values may lead to misinterpretation of CBC data. Current Interpretive Data was last revised on 2018. Testing performed by: [address] [address] Imm gran pct 0.9 % [facility] Comment: Interpretive Data Percent cell count reference ranges are not reported, since discordance with absolute values may lead to misinterpretation of CBC data. Current Interpretive Data was last revised on 2018. Testing performed by: [address] [address] Lymphocyte pct 22.8 % [facility] Comment: Interpretive Data Percent cell count reference ranges are not reported, since discordance with absolute values may lead to misinterpretation of CBC data. Current Interpretive Data was last revised on 2018. Testing performed by: [address] [address] Monocyte pct 8.7 % [facility] Comment: Interpretive Data Percent cell count reference ranges are not reported, since discordance with absolute values may lead to misinterpretation of CBC data. Current Interpretive Data was last revised on 2018. Testing performed by: [address] [address] Eosinophil pct 1.4 % [facility] Comment: Interpretive Data Percent cell count reference ranges are not reported, since discordance with absolute values may lead to misinterpretation of CBC data. Current Interpretive Data was last revised on 2018. Testing performed by: [address] [address] Basophil pct 0.4 % [facility] Comment: Interpretive Data Percent cell count reference ranges are not reported, since discordance with absolute values may lead to misinterpretation of CBC data. Current Interpretive Data was last revised on 2018. Testing performed by: [address] [address] Blood 01/22/2025 5:53 AM INDUCTION MACHINE SETTER 01/22/2025 6:03 AM INDUCTION MACHINE SETTER us Susan Yu VAN DRIVER LAB BLOOD ORDERABLES Final Result [facility] [address] [facility] Department [place] [address] * (ABNORMAL) CBC with auto differential (01/22/2025 5:53 AM INDUCTION MACHINE SETTER) WBC 6.9 3.8 - 9.9 K/cumm Comment:Testing performed by : [address] [address] Hgb 14.3 13.0 - 17.5 g/dL [facility] Comment:Testing performed by : [address] [address] Hct 41.8 38.9 - 50.3 % [facility] YOU Comment:Testing performed by : [address] [address] Plt 216 150 - 400 K/cumm [facility] Comment:Testing performed by : [address] [address] MPV 9.0(L) 9.1 - 12.3 fL [facility] Comment:Testing performed by : [address] [address] RBC 4.85 4.30 - 5.80 M/cumm [facility] Comment:Testing performed by : [address] [address] MCV 86.2 81.3 - 96.4 fL [facility] Comment:Testing performed by : [address] [address] MCH 29.5 27.1 - 33.3 pg [facility] Comment:Testing performed by : [address], [address] MCHC 34.2 32.3 - 35.7 g/dL [facility] Comment:Testing performed by : [address], [address] RDW CV 12.7 11.1 - 14.9 % [facility] Comment:Testing performed by : [address], [address] RDW SD 39.8 35.7 - 48.1 fL [facility] Comment:Testing performed by : [address] [address] NRBC abs 0.00 0.00 - 0.01 K/cumm [facility] Comment:Testing performed by : [address] [address] Blood 01/22/2025 5:53 AM INDUCTION MACHINE SETTER 01/22/2025 6:03 AM INDUCTION MACHINE SETTER us Susan Yu VAN DRIVER LAB BLOOD ORDERABLES Final Result [facility] [facility] Department [place] [address] * Phosphorus (01/22/2025 5:53 AM INDUCTION MACHINE SETTER) Pathologist [facility] Phosphorus, pl 3.8 2.3 - 4.5 mg/dL Comment:Testing performed by : [address] [address] Blood 01/22/2025 5:53 AM INDUCTION MACHINE SETTER 01/22/2025 6:03 AM INDUCTION MACHINE SETTER Susan Yu NP LAB BLOOD ORDERABLES Final Result Performing Organization Address City/[facility] Co de Phone Number [address] [address] * Magnesium (01/22/2025 5:53 AM INDUCTION MACHINE SETTER) [facility] Magnesium 2.1 1.4 - 2.5 mg/dL Comment:Testing performed by : [facility], [address] [place] [address]., [address] Blood 01/22/2025 5:53 AM INDUCTION MACHINE SETTER 01/22/2025 6:03 AM INDUCTION MACHINE SETTER Susan Yu NP LAB BLOOD ORDERABLES Final Result Performing Organization Address [facility] Co de Phone Number [address] [place] [address] * Cortisol (01/22/2025 5:53 AM INDUCTION MACHINE SETTER) [facility] Cortisol 10.7 4.8 - 19.5 mcg/dl Blood 01/22/2025 5:53 AM INDUCTION MACHINE SETTER 01/22/2025 8:28 AM INDUCTION MACHINE SETTER Marycruz Gamboa MD LAB BLOOD ORDERABLES F inal Result Performing Organization Address City/[facility]/ZIP Co de Phone Number [address] [place] [address] * (ABNORMAL) Basic metabolic panel (01/22/2025 5:53 AM INDUCTION MACHINE SETTER) Sodium 131(L) 135 - 145 mmol/L Comment:Testing performed by : [facility], [address] [place] [address]., [address] Potassium, pl 4.7 3.3 - 4.9 mmol/L [facility] Comment:Testing performed by : [address], [place]., [address] Chloride 95(L) 97 - 110 mmol/L [facility] Comment:Testing performed by : [address], [place]., [address] CO2 26 22 - 32 mmol/L [facility] Comment:Testing performed by : [address], [place]., [address] Anion gap 10 2 - 15 mmol/L [facility] Comment:Testing performed by : [address], [place]., [address] BUN 10 6 - 25 mg/dL [facility] Comment:Testing performed by : [address] [address] Creatinine 0.60(L) 0.80 - 1.30 mg/dL [facility] Comment:Testing performed by : [address] [address] Glucose 94 70 - 199 mg/dL [facility] Comment: Interpretive Data Fasting glucose >/= 126 [...] was last revised 2022. Testing performed by: [address] [address] Calcium 9.9 8.5 - 10.3 mg/dL [facility] Comment:Testing performed by : [address], [place]., [address] Blood 01/22/2025 5:53 AM INDUCTION MACHINE SETTER 01/22/2025 6:03 AM INDUCTION MACHINE SETTER us Susan Yu NP LAB BLOOD ORDERABLES Final Result [facility] [address] [facility] Department [place] [address] from Last 3 Months Insurance [facility] PLAN [facility] IDPA IDPA Advance Directives For more information, please contact: [phone] * Full Code (Latest Code Status on File) Date Activated Date Inactivated Comments 01/20/2025 11:35 AM 01/22/2025 6:28 PM Care Teams Wafer Production Worker Relationship Specialty Start Date End Date Unknown, Notinfile PCP - General 01/20/25
--- OUTSIDE RECORDS SUMMARY | 2025-04-24 12:37 | XMS_ITS | Referral Summary ---
Author Organization [facility] ospital Address [address] [place] [address] Care Team Providers Care Instructional Designer Name Role Phone Unknown, Notinfile Primary Care Provider Unavail able Encounters Date Type Department Care Team Description 01/20/2025 8:33 AM CARBON BRUSH MAKER - 01/22/2025 2:23 PM CARBON BRUSH MAKER Hospital Encounter [facility] 4 Med Surg [address] [place] [address] Gerhard Hayes MD Altwal, MD [place], [...] on file Legal Sex Male 1:08 AM CARBON BRUSH MAKER Gender Identity Not on file Sexual Orientation Not on file Last Filed Vital Signs Vital Sign Reading Time Taken Comments Blood Pressure 119/70 01/22/2025 7:38 AM CARBON BRUSH MAKER Pulse 72 01/22/2025 7:38 AM CARBON BRUSH MAKER Temperature 36.3 C (97.3 F) 01/22/2025 7:38 AM CARBON BRUSH MAKER Respiratory Rate 18 01/22/2025 7:38 AM CARBON BRUSH MAKER Oxygen Saturation 100% 01/22/2025 7:38 AM CARBON BRUSH MAKER Inhaled Oxygen Concentration - - Weight 57.4 kg (126 lb 9.6 oz) 01/20/2025 2:46 P M CARBON BRUSH MAKER Height 170.2 cm (5' 7) 01/20/2025 2:46 PM CARBON BRUSH MAKER Body Mass Index 19.83 01/20/2025 2:46 PM CARBON BRUSH MAKER Plan of Treatment Not on file Procedures Procedure Name Priority Date/Time Associated Diagnosis Comments EGFR Routine 01/22/2025 5:53 AM CARBON BRUSH MAKER DIFFERENTIAL AUTO Routine 01/22/2025 5:5 3 AM CARBON BRUSH MAKER CORTISOL Timed 01/22/2025 5:53 AM CARBON BRUSH MAKER PHOSPHORUS Routine 01/22/2025 5:53 AM CARBON BRUSH MAKER MAGNESIUM Routine 01/22/2025 5:53 AM CARBON BRUSH MAKER BASIC METABOLIC PANEL Routine 01/22/2025 5:53 AM CARBON BRUSH MAKER CBC WITH AUTO DIFFERENTIAL Routine 01/22/2025 5:53 AM CARBON BRUSH MAKER from Last 3 Months Results * eGFR (01/22/2025 5:53 AM CARBON BRUSH MAKER) eGFR >90 >=60 mL/min/1. 73 m2 Comment: [...] of Race in Diagnosing Kidney Disease, JASN 202). The CKD-EPI equation should not be used for patients with unstable renal function and has not been validated in children and those over 70. Current interpretive data was last reviewed 2021. Testing performed by: [address] [address] Blood 01/22/2025 5:53 AM CARBON BRUSH MAKER 01/22/2025 6:03 AM CARBON BRUSH MAKER Susan Yu NP LAB BLOOD ORDERABLES Final Result BILLIE YOU [facility] Department [place] [address] * Differential, auto (01/22/2025 5:53 AM CARBON BRUSH MAKER) Neutrophil abs 4.6 1.5 - 6.5 K/cumm Comment:Testing performed by : [address] [address] Imm gran abs 0.1 0.0 - 0.1 K/cumm BILLIE Comment:Testing performed by : [address] [address] Lymphocyte abs 1.6 0.8 - 3.3 K/cumm BILLIE Comment:Testing performed by : [address] [address] Monocyte abs 0.6 0.2 - 0.8 K/cumm BILLIE Comment:Testing performed by : [address] [address] Eosinophil abs 0.1 0.0 - 0.5 K/cumm BILLIE Comment:Testing performed by : [address] [address] Basophil abs 0.0 0.0 - 0.1 K/cumm BILLIE Comment:Testing performed by : [address] [address] Neutrophil pct 65.8 % [facility] Comment: Interpretive Data Percent cell count reference ranges are not reported, since discordance with absolute values may lead to misinterpretation of CBC data. Current Interpretive Data was last revised on 2018. Testing performed by: [facility], [address] [place] [address]., [address] Imm gran pct 0.9 % [facility] Comment: Interpretive Data Percent cell count reference ranges are not reported, since discordance with absolute values may lead to misinterpretation of CBC data. Current Interpretive Data was last revised on 2018. Testing performed by: [address] [address] Lymphocyte pct 22.8 % [facility] Comment: Interpretive Data Percent cell count reference ranges are not reported, since discordance with absolute values may lead to misinterpretation of CBC data. Current Interpretive Data was last revised on 2018. Testing performed by: [address] [address] Monocyte pct 8.7 % [facility] Comment: Interpretive Data Percent cell count reference ranges are not reported, since discordance with absolute values may lead to misinterpretation of CBC data. Current Interpretive Data was last revised on 2018. Testing performed by: [address] [address] Eosinophil pct 1.4 % [facility] Comment: Interpretive Data Percent cell count reference ranges are not reported, since discordance with absolute values may lead to misinterpretation of CBC data. Current Interpretive Data was last revised on 2018. Testing performed by: [address] [address] Basophil pct 0.4 % [facility] Comment: Interpretive Data Percent cell count reference ranges are not reported, since discordance with absolute values may lead to misinterpretation of CBC data. Current Interpretive Data was last revised on 2018. Testing performed by: [address] [address] Blood 01/22/2025 5:53 AM CARBON BRUSH MAKER 01/22/2025 6:03 AM CARBON BRUSH MAKER us Susan Colvin Gigi IT SALES REPRESENTATIVE LAB BLOOD ORDERABLES Final Result BILLIE [address] [facility] Department of Laboratories [place], [place] [id number] * (ABNORMAL) CBC with auto differential (01/22/2025 5:53 AM CARBON BRUSH MAKER) WBC 6.9 3.8 - 9.9 K/cumm Comment:Testing performed by : [address] [address] Hgb 14.3 13.0 - 17.5 g/dL BILLIE Comment:Testing performed by : [address], [address] Hct 41.8 38.9 - 50.3 % BILLIE Comment:Testing performed by : [address] [address] Plt 216 150 - 400 K/cumm BILLIE Comment:Testing performed by : [address] [address] MPV 9.0(L) 9.1 - 12.3 fL BILLIE Comment:Testing performed by : [address], [address] RBC 4.85 4.30 - 5.80 M/cumm BILLIE YOU Comment:Testing performed by : [address] [address] MCV 86.2 81.3 - 96.4 fL BILLIE Comment:Testing performed by : [address], [address] MCH 29.5 27.1 - 33.3 pg BILLIE Comment:Testing performed by : [address], [address] MCHC 34.2 32.3 - 35.7 g/dL BILLIE YOU Comment:Testing performed by : [address], [address] RDW CV 12.7 11.1 - 14.9 % BILLIE Comment:Testing performed by : [address], [address] RDW SD 39.8 35.7 - 48.1 fL BILLIE Comment:Testing performed by : [address] [address] NRBC abs 0.00 0.00 - 0.01 K/cumm BILLIE Comment:Testing performed by : [address] [address] Blood 01/22/2025 5:53 AM CARBON BRUSH MAKER 01/22/2025 6:03 AM CARBON BRUSH MAKER Wellingtonjonny Yu IT SALES REPRESENTATIVE LAB BLOOD ORDERABLES Final Result Performing Organization Address [facility]/ZIP Co de Phone Number [address] [place] [address] * Phosphorus (01/22/2025 5:53 AM CARBON BRUSH MAKER) Phosphorus, pl 3.8 2.3 - 4.5 mg/dL Comment:Testing performed by : [address] [address] Blood 01/22/2025 5:53 AM CARBON BRUSH MAKER 01/22/2025 6:03 AM CARBON BRUSH MAKER Wellingtonjonny Yu IT SALES REPRESENTATIVE LAB BLOOD ORDERABLES Final Result Performing Organization Address [facility] Co de Phone Number [address] [place] [address] * Magnesium (01/22/2025 5:53 AM CARBON BRUSH MAKER) Magnesium 2.1 1.4 - 2.5 mg/dL Comment:Testing performed by : [address] [address] Blood 01/22/2025 5:53 AM CARBON BRUSH MAKER 01/22/2025 6:03 AM CARBON BRUSH MAKER Wellingtonderiansandhya Colvin Yu IT SALES REPRESENTATIVE LAB BLOOD ORDERABLES Final Result Performing Organization Address City/[facility] Co de Phone Number [address] [place] [address] * Cortisol (01/22/2025 5:53 AM CARBON BRUSH MAKER) Pathologist [facility] Cortisol 10.7 4.8 - 19.5 mcg/dl Blood 01/22/2025 5:53 AM CARBON BRUSH MAKER 01/22/2025 8:28 AM CARBON BRUSH MAKER us Marycruz Gambao MD LAB BLOOD ORDERABLES F inal Result [place] [id number] [facility] Department [place] [address] * (ABNORMAL) Basic metabolic panel (01/22/2025 5:53 AM CARBON BRUSH MAKER) [facility] Sodium 131(L) 135 - 145 mmol/L Comment:Testing performed by : [address] [address] Potassium, pl 4.7 3.3 - 4.9 mmol/L BILLIE Comment:Testing performed by : [address] [address] Chloride 95(L) 97 - 110 mmol/L BILLIE Comment:Testing performed by : [address] [address] CO2 26 22 - 32 mmol/L BILLIE Comment:Testing performed by : [address] [address] Anion gap 10 2 - 15 mmol/L BILLIE Comment:Testing performed by : [address] [address] BUN 10 6 - 25 mg/dL BILLIE Comment:Testing performed by : [address] [address] Creatinine 0.60(L) 0.80 - 1.30 mg/dL BILLIE Comment:Testing performed by : [address] [address] Glucose 94 70 - 199 mg/dL BILLIE [...] was last revised 2022. Testing performed by: [facility], [address] [place] [address]., [address] Calcium 9.9 8.5 - 10.3 mg/dL BILLIE YOU Comment:Testing performed by : [address] [address] Blood 01/22/2025 5:53 AM CARBON BRUSH MAKER 01/22/2025 6:03 AM CARBON BRUSH MAKER Susan Yu NP LAB BLOOD ORDERABLES Final Result BILLIE YOU [address] [facility] Department [place] [address] from Last 3 Months Insurance [facility] [employer]IC PLAN PSYCHIATRIC PLAN [facility] Advance Directives For more information, please contact: [phone] * Full Code (Latest Code Status on File) Date Activated Date Inactivated Comments 01/20/2025 11:35 AM 01/22/2025 6:28 PM Care Teams Instructional Designer Relationship Specialty Start Date End Date Unknown, Notinfile PCP - General 01/20/25
--- OUTSIDE RECORDS SUMMARY | 2025-04-24 12:37 | XMS_ITS | Clinical Summary ---
Author Organization [facility] [employer] Address [address] [place] [address] Care Team Providers Care Heat Sealing Machine Operator Name Role Phone Avis Clark MD Unavailable [phone] Source Comments [facility] [employer],non-owned Affiliates and Associated Physician Practices is amultiple site organization consisting of ambulatory clinics and hospital sitesin [place], [place], [place] and [place]. This disclosure is being madepursuant to the Care Everywhere program and may not contain all information available regarding this patient. Last updated [email or web address] Allergies Active Allergy Reactions Criticality Noted Date Comments Penicillins Unknown 10/02/2021 Family has reactions mom avoids Medications * Be aware that medications may not be up to date on this document. Alwaysverify current medications with the patient. polyethylene glycol 3350 (MIRALAX) packet Take by mouth once daily Active diazePAM (VALTOCO) 10 MG/0.1ML nasal spray [place] 0.1 mL into the nose as needed (seizure > 5 min) 2 Each 07/31/20 21 Active multivitamin daily tablet Take 1 (one) tablet by mouth daily with food Active melatonin 3 MG tablet Take 1 (one) tablet by mouth at bedtime Active acetaminophen (TYLENOL) 325 MG tablet Take 1 (one) tablet by mouth every 4 hours as needed for Fever or Pain Maximum allowable Acetaminophen amount = 4 Grams (4000 mg) / 24 hours. 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, intractable, without status epilepticus (HCC) Take 10 mL by mouth every 12 hours 600 mL 04/24/20 25 025 Active lacosamide (Vimpat) 10 MG/ML oral solutionIndicat ions: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, intractable, without status epilepticus (HCC) Take 15 mL by mouth 2 times daily When starting the medication for the first time, please start as follows: 5ml twice daily X 3 days, 10ml twice daily for 3 days, 15ml twice daily thereafter 900 mL 5 02/10/20 25 025 Discontin ued(Reord er) valproic acid (Depakene) 250 MG/5ML solutionIndicat ions: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 210 mL 02/10/20 25 025 Discontin ued(List Clean-Up) Active Problems Patient Care Coordination No te Formatting of this note migh t be different from the original. Do you have any cultural preferences or concerns? No 10/30/21 Problem Noted Date Diagnosed Date Behavior concern in adult 04/24/2025 Cognitive and neurobehavioral dysfunction 2023 Localization-related (focal) [...] months Assessment & Plan (01/16/2020 10:05 PM PAINT COATING MACHINE OPERATOR): Assessment: 14 year old male with history [...] Encounters Date Type Department Care Team Description 04/24/2025 10:47 AM CDT Hospital Encounter [facility] - Neurology [address] [place] [address] Gayla Diaz MD 04/24/2025 Travel 03/31/2025 Telephone [facility] - Neurology [facility] [facility] [place] [address] aGyla Diaz MD General 03/03/2025 Telephone [facility] - Neurology [address] [place] [address] Gayla Diaz MD Update 02/16/2025 Telephone [facility] - Neurology [address] [place] [address] Gayla Diaz MD Update 02/07/2025 Telephone [facility] - Neurology [address] [place] [address] Gayla Diaz MD Results 02/06/2025 10:30 AM CDT - 02/06/2025 11:59 PM CDT Hospital Encounter [facility] - Neurology [facility] [place] [address] Gayla Diaz MD Discharge Disposition: Home or Self Care 02/06/2025 Travel 01/23/2025 Travel 01/23/2025 Refill [facility] - Neurology [address] [place] [address] Gayla Diaz MD MEDICATION REFILL from Last 3 Months Immunizations Immunization Administration Dates Next Due DTAP/HEP B/IPV 02/12/2005,2004 [...] QUADRIVALENT; 6MO+), 0.5 ML (IIV4) 01/17/2020,11/11/2017,11/04/2017,08/31,10/04/2014 MENINGOCOCCAL ACWY MENVEO 07/02/2015 MMR VACCINE 10/16/2008,10/21/2005 PNEUMOCOCCAL PCV7 CONJ, [...] on file Legal Sex Male 5:45 AM PAINT COATING MACHINE OPERATOR Gender Identity Not on file Sexual Orientation Not on file Last Filed Vital Signs Vital Sign Reading Time Taken Comments Blood Pressure 124/72 02/06/2025 10:38 AM CDT Pulse 96 10/02/2021 3:40 PM PAINT COATING MACHINE OPERATOR Temperature 36.6 C (97.8 F) 10/02/2021 3:40 PM PAINT COATING MACHINE OPERATOR Respiratory Rate 15 10/02/2021 3:40 PM PAINT COATING MACHINE OPERATOR Oxygen Saturation 97% 10/02/2021 3:40 PM PAINT COATING MACHINE OPERATOR Inhaled Oxygen Concentration - - Weight 55.2 kg (121 lb 11.1 oz) 025 10:52 AM CDT Height 170.3 cm (5' 7.05) 04/24/2025 1 0:52 AM CDT Body Mass Index 19.03 04/24/2025 10:52 AM CDT Plan of Treatment Upcoming Encounters Date Type Department Care Team (Late st Contact Info) Description 08/07/2025 11:30 AM CDT Appointment [facility] - Neurology [address] [place] [address] Gayla Diaz MD [address] [facility] DEPT [place] [address] Health Maintenance Due Date Last Done Comments [...] Completed 01/22/2025, , 01/17/2020, Additional history exists Insurance [facility] MEDICAID [facility] Address: [facility] CLAIMS [address] [place] [address] [facility] MEDICAID Advance Directives * Full Code (Latest Code Status on File) Date Activated Date Inactivated Comments 01/16/2020 9:36 PM 01/17/2020 6:52 PM Care Teams Heat Sealing Machine Operator Relationship Specialty Start Date End Date Avis Clark MD PCP - Attributed-[employer] Medicaid [place] 08/23/22
--- OUTSIDE RECORDS SUMMARY | 2025-04-24 12:37 | XMS_ITS | Encounter Summary ---
Author Organization [facility] Address [address] [place] [address] Care Team Providers Care Academic Support Coordinator Name Role Phone Avis Clark MD Unavailable [phone] Reason for Referral * Social Work (Routine) - Open Specialty Diagnoses / Procedures Referred By Contac t Referred To Contact Business Systems Manager Diagnoses Localization-related (focal) (partial) idiopathic epilepsy and epileptic syndromes with seizures of localized onset, intractable, without status epilepticus (HCC) Behavior concern in adult Gayla Diaz MD [address] [place] [address] [place] [address] Phone: tel: fax: Referral ID Status Reason Start Date Expiration Date V isits Requested Visits Authorized [id number] Open Specialty Services Required 04/24/2025 04/24/2026 1 1 Scheduling Instructions Family with limited resources, mother has been unable to access care for patient, patient needs to be placed in outside home - mother would like assistance with this process, patient needs SSI * Consultation (Routine) - Open Specialty Diagnoses / Procedures Referred By Contac t Referred To Contact Neurology Diagnoses Localization-related (focal) (partial) idiopathic epilepsy and epileptic syndromes with seizures of localized onset, intractable, without status epilepticus (HCC) Gayla Diaz MD [address] [place], [place] [address] [address] Phone: tel: fax: Referral ID Status Reason Start Date Expiration Date V isits Requested Visits Authorized [id number] Open Specialty Services Required 04/24/2025 04/24/2026 1 1 Scheduling Instructions Needs to establish care with adult provider * Transfer of Care (Routine) - Open Specialty Diagnoses / Procedures Referred By Contac t Referred To Contact Diagnoses Localization-related (focal) (partial) idiopathic epilepsy and epileptic syndromes with seizures of localized onset, intractable, without status epilepticus (HCC) Gayla Diaz MD [address] [place] [address] [place] [address] Phone: tel: fax: Referral ID Status Reason Start Date Expiration Date V isits Requested Visits Authorized [id number] Open Specialty Services Required 04/24/2025 04/24/2026 1 1 Scheduling Instructions Need to establish care with adult provider Reason for Visit * Reason Comments Seizure Encounter Details Date Type Department Care Team (Late st Contact Info) Description 04/24/2025 10:47 AM CDT Hospital Encounter [facility] [address] [place] [address] [place] [address] Gayla Diaz MD [address] [place] [address] [place] [address] Social History Tobacco Use Types [...] on file 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 Gender Identity Not on file Sexual Orientation Not on file documented as of this encounter Last Filed Vital Signs Vital Sign Reading Time Taken Comments Blood Pressure - - Pulse - - Temperature - - Respiratory Rate - - Oxygen Saturation - - Inhaled Oxygen Concentration - - Weight 55.2 kg (121 lb 11.1 oz) 025 10:52 AM CDT Height 170.3 cm (5' 7.05) 04/24/2025 1 0:52 AM CDT Body Mass Index 19.03 04/24/2025 10:52 AM CDT documented in this encounter Functional Status * Is person [...] Lucie Ahuja RN documented in this encounter Discharge Instructions * Patient Instructions* Gayla Diaz MD - 04/24/2025 11:44 AM CDT Bill was seen in the neurology clinic for follow up. We will plan to continue his current dose of Depakene (Valproic acid) 10ml twice per day and Lacosamide (Vimpat) 15ml twice per day. We will get labs today to check his sodium and also to check his other Valproate monitoring labs. For his behavior and social concerns, I agree he may benefit from relocating to a senior care setting. He may also have more access to resources. Please continue process of applying for social security benefits for him. I will message our social workers to see if they can be of assistance. Since he will be 20 in September, he will need to establish care with an adult provider. Please [phone] for the [facility] Neurology office if you wish to take him there for an appointment. It would be worthwhile looking into neurologists closer to home as well. Please return to clinic in 3 months. Please call our office at [phone] with questions or concerns. documented in this encounter Plan of Treatment Upcoming Encounters Date Type Department Care Team (Late st Contact Info) Description 08/07/2025 11:30 AM CDT Appointment [facility] [address] [place] [address] Gayla Diaz MD [facility] [facility] [place] [address] Scheduled Orders Name Type Priority Associated Diagnoses Orde r Schedule VALPROIC ACID LEVEL Lab Routine Localization-related (focal) (partial) idiopathic epilepsy and epileptic syndromes with seizures of localized onset, intractable, without status epilepticus (HCC) 1 Occurrences starting 04/24/2025 until 04/19/2026 COMPREHENSIVE METABOLIC PANEL Lab Routine Localization-related (focal) (partial) idiopathic epilepsy and epileptic syndromes with seizures of localized onset, intractable, without status epilepticus (HCC) 1 Occurrences starting 04/24/2025 until 04/19/2026 CBC W DIFFERENTIAL Lab Routine Localization-related (focal) (partial) idiopathic epilepsy and epileptic syndromes with seizures of localized onset, intractable, without status epilepticus (HCC) 1 Occurrences starting 04/24/2025 until 04/19/2026 LACOSAMIDE Lab Routine Localization-related (focal) (partial) idiopathic epilepsy and epileptic syndromes with seizures of localized onset, intractable, without status epilepticus (HCC) 1 Occurrences starting 04/24/2025 until 04/19/2026 AMMONIA Lab Routine Localization-related (focal) (partial) idiopathic epilepsy and epileptic syndromes with seizures of localized onset, intractable, without status epilepticus (HCC) 1 Occurrences starting 04/24/2025 until 04/19/2026 VALPROIC ACID LEVEL Lab Routine Localization-related (focal) (partial) idiopathic epilepsy and epileptic syndromes with seizures of localized onset, intractable, without status epilepticus (HCC) 1 Occurrences starting 04/24/2025 until 04/24/2025 COMPREHENSIVE METABOLIC PANEL Lab Routine Localization-related (focal) (partial) idiopathic epilepsy and epileptic syndromes with seizures of localized onset, intractable, without status epilepticus (HCC) 1 Occurrences starting 04/24/2025 until 04/24/2025 CBC W DIFFERENTIAL Lab Routine Localization-related (focal) (partial) idiopathic epilepsy and epileptic syndromes with seizures of localized onset, intractable, without status epilepticus (HCC) 1 Occurrences starting 04/24/2025 until 04/24/2025 LACOSAMIDE Lab Routine Localization-related (focal) (partial) idiopathic epilepsy and epileptic syndromes with seizures of localized onset, intractable, without status epilepticus (HCC) 1 Occurrences starting 04/24/2025 until 04/24/2025 AMMONIA Lab Routine Localization-related (focal) (partial) idiopathic epilepsy and epileptic syndromes with seizures of localized onset, intractable, without status epilepticus (HCC) 1 Occurrences starting 04/24/2025 until 04/24/2025 Scheduled Referrals Name Type Priority Associated Diagnoses Orde r Schedule Referral to Neurology Outpatient Referral Routine Localization-related (focal) (partial) idiopathic epilepsy and epileptic syndromes with seizures of localized onset, intractable, without status epilepticus (HCC) Expected: 04/24/2025, Expires: 04/24/2026 Referral to Neurology Outpatient Referral Routine Localization-related (focal) (partial) idiopathic epilepsy and epileptic syndromes with seizures of localized onset, intractable, without status epilepticus (HCC) Expected: 04/24/2025, Expires: 04/24/2026 Referral to Social Work Outpatient Referral Routine Localization-related (focal) (partial) idiopathic epilepsy and epileptic syndromes with seizures of localized onset, intractable, without status epilepticus (HCC) Behavior concern in adult Expected: 04/24/2025, Expires: 04/24/2026 documented as of this encounter Visit Diagnoses Diagnosis Localization-related (focal) (partial) idiopathic epilepsy and epileptic syndromes with seizures of localized onset, intractable, 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
[2025-04-24 14:27] LABS: Ammonia < 9 umol/L (9-30)
[2025-04-24 14:35] LABS: Basophils Percent Auto 0.4 % (0.2-1.2); Eosinophils Absolute Auto 0.1 K/mm3 (0-0.3); Eosinophils Percent Auto 1.2 % (0-4.4); Hematocrit 47.7 % (42.0-52.0); Hemoglobin 15.3 g/dL (14.0-18.0); Immature Granulocyte Absolute 0.05 K/mm3 (0.00-0.031); Immature Granulocyte Percent A 0.6 % (0-0.5); Lymphocytes Absolute Auto 2.04 K/mm3 (0.9-3.2); Lymphocytes Percent Auto 24.4 % (18.3-44.2); Mean Corpuscular HGB Conc 32.1 g/dl (32-36); Mean Corpuscular Hemoglobin 30.1 pg (26-34); Mean Corpuscular Volume 93.7 fl (80-100); Mean Platelet Volume 10.6 fl (7.4-10.4); Monocytes Absolute Auto 0.7 K/mm3 (0.1-0.6); Monocytes Percent Auto 8.3 % (2.6-8.5); Neutrophils Absolute Auto 5.5 K/mm3 (1.3-6.7); Neutrophils Percent Auto 65.1 % (45.5-73.1); Platelet Count Result 210 k/mm3 (150-375); Red Blood Count 5.09 M/mm3 (4.6-6.20); Red Cell Distribution Width 12.8 % (11.5-14.5); White Blood Count 8.4 K/mm3 (4.5-10.0)
[2025-04-24 14:44] LABS: Valproic Acid 53.6 ug/mL (50-120)
[2025-04-24 15:13] LABS: Alanine Aminotransferase 16 U/L (6-50); Albumin Level 4.9 g/dL (3.5-5.1); Alkaline Phosphatase 91 U/L (38-126); Anion Gap 10 mmol/L (4-12); Aspartate Amino Transferase 39 U/L (17-59); Bilirubin,Total 0.4 mg/dL (0.2-1.3); Blood Urea Nitrogen 5 mg/dL (9-20); Calcium 9.8 mg/dL (8.4-10.2); Carbon Dioxide 30 mmol/L (22-30); Chloride 103 mmol/L (98-107); Estimated Glomerular Filt Rate > 60; Glucose 82 mg/dL (65-110); Potassium 4.1 mmol/L (3.4-5.0); Sodium 143 mmol/L (137-145)
[2025-04-26 23:18] LABS: Lacosamide 3.3 mcg/mL
== END 2025-04-24 12:33 | disposition home or self-care (01) ==
LOC: ANHGOSHLAB 12:34
DX: G40.019 Localization-related (focal) (partial) idiopathic epilepsy and epileptic syndromes with seizures of localized onset, intractable, without status epilepticus (principal)
CPT/HCPCS: 36415; 80053; 80164; 80235; 82140; 85025